=== PATIENT | female | born 1980 | race Caucasian/White ===

== ENCOUNTER 2016-08-21 14:08 | Emergency (ER) | payer OTHER ==
[~2016-08-21] VITALS: Ht 152.4 cm; Wt 84.0 kg
[2016-08-21 14:15] VITALS: Ht 152.4 cm; Wt 84.0 kg
[2016-08-21] MEDS ORDERED: morphine 4 MG/ML VIAL IV STA ×2 (14:37→17:01)
[2016-08-21] MEDS ORDERED: ONDANSETRON 4 MG INJ IV STA ×2 (14:37→17:01)
[2016-08-21] MEDS ORDERED: SOD CHLORIDE 0.9% 1,000 ML IV STA (14:37)
[2016-08-21 15:22] LABS: ADD SCAN DIFF NO
[2016-08-21 15:24] LABS: BASOPHILS % 0.6 % (0.0-2.0); EOSINOPHILS # 0.2 10^3/ul (0.0-0.5); EOSINOPHILS % 2.6 % (0.0-7.0); HEMATOCRIT 42.1 % (37.0-47.0); HEMOGLOBIN 13.6 g/dl (12.0-16.0); LYMPHOCYTES # 2.1 10^3/ul (0.8-2.9); LYMPHOCYTES % 28.5 % (15.0-51.0); MEAN CORPUSCULAR HEMOGLOBIN 29.5 pg (29.0-33.0); MEAN CORPUSCULAR HGB CONC 32.3 g/dl (32.0-37.0); MEAN CORPUSCULAR VOLUME 91.3 fl (82.0-101.0); MONOCYTE # 0.4 10^3/ul (0.3-0.9); MONOCYTES % 6.1 % (0.0-11.0); NEUTROPHIL # 4.5 10^3/ul (1.6-7.5); NEUTROPHILS % 61.9 % (39.0-77.0); PLATELET COUNT 304 10^3/UL (140-415); RED BLOOD COUNT 4.61 10^6/ul (4.20-5.40); RED CELL DISTRIBUTION WIDTH 13.8 % (11.5-14.5); WHITE BLOOD COUNT 7.2 10^3/ul (4.8-10.8)
[2016-08-21 15:26] LABS: ADD UMIC YES; URINE BILIRUBIN (Dip) NEGATIVE (NEGATIVE); URINE BLOOD (Dip) NEGATIVE (NEGATIVE); URINE COLOR YELLOW (YELLOW); URINE GLUCOSE (Dip) NEGATIVE (NEGATIVE); URINE KETONES (Dip) NEGATIVE (NEGATIVE); URINE LEUKOCYTE ESTERASE (Dip) 1+ (NEGATIVE); URINE NITRITE (Dip) NEGATIVE (NEGATIVE); URINE TOTAL PROTEIN (Dip) TRACE (NEGATIVE); URINE UROBILINOGEN (Dip) 0.2 E.U./dL (0.1-1.0)
--- NOTE | 2016-08-21 15:28 | RADRPT ---
PROCEDURE: CT Abdomen and Pelvis without contrast. CLINICAL INDICATION: Right lower quadrant pain TECHNIQUE: CT scan of the abdomen and pelvis without contrast was performed on a multi-slice CT sc kobe without intravenous contrast. Coronal and sagittal reformatted images were obtained from the axial source images. Images were reviewed on a high-resolution PACS workstation. One or more of the following does reduction techniques were used: Automated exposure control; adjustment of the mA an d/or kV according to patient size; use of the aorta of reconstruction technique. The total exam CTD I equals 14.66 mGy and the total exam DLP equals 754.68 mGy-cm. COMPARISON: None available. FINDINGS: There are minimal dependent changes in the posterior lower lobes.. Heart size is normal, and there is no evidence of pericardial thickening or effusion. Breast prostheses are partially imaged. The liver, spleen, and pancreas are normal given limitations of a noncontrast CT examination. The g allbladder is surgically absent. The adrenal glands are normal. The kidneys without renal calculus or hydronephrosis. The aorta is of normal caliber. There is no retroperitoneal lymph node enlargment. There is no evidence of large or small bowel obstruction. There are a few colonic diverticula. The re is no CT evidence of diverticulitis. A normal appendix is identified. No free fluid or fluid c ollections are identified. No inflammatory changes are seen. The uterus is present. No enlarged pelvic sidewall lymph nodes are seen. The bladder is decompresse d and collapsed. No free fluid is identified. The inguinal regions are unremarkable. The bones are intact. IMPRESSION: 1. No CT evidence of acute intra-abdominal or pelvic process. A normal appendix is identified. 2. No CT evidence of urolithiasis. 3. Diverticulosis without evidence of diverticulitis. RPTAT: KK .Petey Bland MD, MD Date Time Electronically viewed and signed by .Petey Bland MD, MD on 08/21/2016 15:28 .B/
[2016-08-21 15:41] LABS: POTASSIUM 4.5 mmol/L (3.5-5.1)
[2016-08-21 15:42] LABS: CREATININE 0.57 mg/dl (0.44-1.00)
[2016-08-21 15:43] LABS: ALBUMIN/GLOBULIN RATIO 1.53; BILIRUBIN,INDIRECT 0.4 mg/dl (0-1.1); BILIRUBIN,TOTAL 0.4 mg/dl (0.2-1.3); CALCIUM 9.7 mg/dl (8.4-10.2); TOTAL PROTEIN 6.6 g/dl (6.1-8.1)
[2016-08-21 15:46] LABS: BACTERIA,URINE MANY; SQUAMOUS EPITHELIAL CELL,UR MANY; URINE RBCS 0-2 /HPF (0)
--- NOTE | 2016-08-21 17:01 | RADRPT ---
PROCEDURE: US Pelvis CLINICAL INDICATION: right pelvic pain TECHNIQUE: Multiple sonographic images of the pelvis were obtained utilizing a transabdominal and endovaginal technique. The images were reviewed on a PACS workstation. COMPARISON: None. LMP: 08/14/2016 FINDINGS: The uterus measures 7.2 x 4.6 x 5.7 cm. The endometrial echo complex measures 9 mm in thickness. There is a 1.4 cm posterior subserosal fibroid at the level of the mid body. The right ovary measures 3.0 x 2.0 x 2.3 cm. The left ovary measures 3.0 x 1.4 x 2.0 cm. There is no rmal vascular flow in both ovaries. There is a 1.9 cm complex cystic lesion with thick farnsworth and heterogeneous internal echoes in the ri ght ovary which is likely a hemorrhagic or corpus luteal cyst. Minimal peripheral vascular flow is noted. No significant pelvic free fluid is identified. IMPRESSION: 1.4 cm subserosal fibroid. 1.9 cm complex cystic lesion in the right ovary is likely a hemorrhagic or corpus luteal cyst. RPTAT: EE Physician Amy Date Time Electronically viewed and signed by Physician Amy on 08/21/2016 17:01 /
[2016-08-21] MEDS ORDERED: HYDR-906 PO (17:25)
[2016-08-21] MEDS ORDERED: IBUP-1542 PO (17:25)
--- NOTE | 2016-08-21 18:03 | ERD ---
ER Documentation Chief Complaint Date/Time DATE: 08/21/16 TIME: 18:01 Chief Complaint R SIDED ABD PAIN X 2 DAYS HPI 35-year-old female with a past medical history of status post cholecystectomy in 2012 presents to the ED complaining of right lower quadrant abdominal pain and right pelvic pain that started 2 days ago intermittently. States that she started to have 6 episodes of nonbilious nonbloody vomiting and 4 episodes of nonbloody nonmucoid diarrhea. States that this was a sudden onset is gradually started to get worse. Dates that her last menses was August 14, 2016. Denies any vaginal bleeding, vaginal discharge, chest pain, shortness of breath , rashes, dysuria, urgency, frequency, hematuria. ROS All systems reviewed and are negative except as per history of present illness. Medications Home Meds Active Scripts Ibuprofen* (Motrin*) 600 Mg Tab, 600 MG PO Q6, #30 TAB Prov:GLENYS ANDERSON PA-C 08/21/16 Hydrocodone/Acetaminophen ([place] 5-325 Tablet) 1 Each Tablet, 1 TAB PO QHS Y for PAIN, #7 TAB Prov:GLENYS ANDERSON PA-C 08/21/16 Allergies Allergies: Coded Allergies: No Known Allergy (Unverified , 08/21/16) PMhx/Soc History of Surgery: Yes (gallbladder) Hx Alcohol Use: No Hx Substance Use: No Hx Tobacco Use: No Smoking Status: Never smoker Physical Exam Vitals Vital Signs Date Time Temp Pulse Resp B/P Pulse Ox O2 Delivery O2 Flow Rate FiO2 08/21/16 14:15 98.1 78 18 125/72 99 Physical Exam Const: Ths-dev-siecxjghr, well-nourished. In no acute distress. Head: Atraumatic, normocephalic Eyes: Normal Conjunctiva without injection. No purulent discharge. ENT: Normal external ear, nose. Moist oropharynx without tonsillar exudates. Non -erythematous pharynx. Uvula midline. No drooling. No trismus. Neck: No cervical midline tenderness. Full range of motion. No meningismus. No cervical lymphadenopathy. No JVD. Resp: Clear to auscultation bilaterally. No wheezing, rhonchi, rales, or crackles. No accessory muscle use. No retractions. Cardio: Regular rate and rhythm. No murmurs, rubs or gallops. Abd: Soft, right lower quadrant tenderness, non distended. Normal bowel sounds. No palpable masses. No rebound tenderness. No guarding. Negative McBurney' s point. Negative psoas sign. Negative obturator sign. Skin: No petechiae or rashes Back: No midline tenderness. No CVA tenderness. Ext: No cyanosis, or edema. Neur: Awake and alert. Normal gait. Normal coordination. Psych: Normal Mood and Affect Result Diagram: 08/21/16 1457 08/21/16 1457 Results 24 hrs Laboratory Tests Test 08/21/16 14:57 08/21/16 15:00 Alanine Aminotransferase (ALT/SGPT) 22IU/L Albumin 4.0g/dl Albumin/Globulin Ratio 1.53 Alkaline Phosphatase 58IU/L Anion Gap 17 Aspartate Amino Transf (AST/SGOT) 21IU/L Basophils # 0.010^3/ul Basophils % 0.6% Blood Urea Nitrogen 13mg/dl Calcium Level 9.7mg/dl Carbon Dioxide Level 24mmol/L Chloride Level 105mmol/L Creatinine 0.57mg/dl Direct Bilirubin 0.00mg/dl Eosinophils # 0.210^3/ul Eosinophils % 2.6% Globulin 2.60g/dl Glucose Level 89mg/dl Hematocrit 42.1% Hemoglobin 13.6g/dl Indirect Bilirubin 0.4mg/dl Lipase 109U/L Lymphocytes # 2.110^3/ul Lymphocytes % 28.5% Mean Corpuscular Hemoglobin 29.5pg Mean Corpuscular Hemoglobin Concent 32.3g/dl Mean Corpuscular Volume 91.3fl Mean Platelet Volume 10.0fl Monocytes # 0.410^3/ul Monocytes % 6.1% Neutrophils # 4.510^3/ul Neutrophils % 61.9% Nucleated Red Blood Cells # 0.010^3/ul Nucleated Red Blood Cells % 0.0/100WBC Platelet Count 89816^3/UL Potassium Level 4.5mmol/L Red Blood Count 4.6110^6/ul Red Cell Distribution Width 13.8% Sodium Level 141mmol/L Total Bilirubin 0.4mg/dl Total Protein 6.6g/dl White Blood Count 7.210^3/ul Urine Bacteria MANY Urine Bilirubin NEGATIVE Urine Clarity SLIGHTLY CLOUDY Urine Color YELLOW Urine Glucose NEGATIVE% Urine Hemoglobin NEGATIVE Urine Ketones NEGATIVE Urine Leukocyte Esterase 1+ Urine Microscopic RBC 0-2/HPF Urine Microscopic WBC 2-5/HPF Urine Nitrite NEGATIVE Urine Specific [place] 1.020 Urine Squamous Epithelial Cells MANY Urine Total Protein TRACE Urine Urobilinogen 0.2 E.U./dL Urine pH 7.5 Current Medications Medications (Trade) Dose Ordered Sig/Tiffany Route PRN Reason Start Time Stop Time Status Last Admin Dose Admin Sodium Chloride (NS) 1,000 ml @ 1,000 mls/hr Q1H STAT IV 08/21/16 14:37 08/21/16 15:36 DC 08/21/16 15:04 Morphine Sulfate (morphine) 4 mg ONCE STAT IV 08/21/16 14:37 08/21/16 14:42 DC 08/21/16 15:05 Ondansetron HCl (Zofran Inj) 4 mg ONCE STAT IV 08/21/16 14:37 08/21/16 14:42 DC 08/21/16 15:04 Ondansetron HCl (Zofran Inj) 4 mg ONCE STAT IV 08/21/16 17:01 08/21/16 17:02 DC 08/21/16 17:06 Morphine Sulfate (morphine) 4 mg ONCE STAT IV 08/21/16 17:01 08/21/16 17:02 DC 08/21/16 17:06 Procedures/MDM This is a 35-year-old female with a past medical history of status post cholecystectomy presents to the ED complaining of right lower quadrant abdominal pain. Patient is afebrile and nontoxic-appearing. Patient has normal vital signs. Patient was further worked up with CBC, CMP, lipase, UA, urine , CT of the abdomen and pelvis without contrast, pelvic ultrasound. Patient's pain and symptoms have improved after treatment with a total of 8 mg IV morphine, 8 mg IV Zofran. CBC: No leukocytosis. No e/o of systemic infection. No e/o anemia. CMP: No e/o severe acidosis, alkalosis, renal failure, diabetic ketoacidosis, liver disease Lipase within normal limits. Urine: No leukocyte esterase, no nitrites, no hematuria. Urine : negative PROCEDURE: US Pelvis CLINICAL INDICATION: right pelvic pain TECHNIQUE: Multiple sonographic images of the pelvis were obtained utilizing a transabdominal and endovaginal technique. The images were reviewed on a PACS workstation. COMPARISON: None. LMP: 08/14/2016 FINDINGS: The uterus measures 7.2 x 4.6 x 5.7 cm. The endometrial echo complex measures 9 mm in thickness. There is a 1.4 cm posterior subserosal fibroid at the level of the mid body. The right ovary measures 3.0 x 2.0 x 2.3 cm. The left ovary measures 3.0 x 1.4 x 2.0 cm. There is normal vascular flow in both ovaries. There is a 1.9 cm complex cystic lesion with thick farnsworth and heterogeneous internal echoes in the right ovary which is likely a hemorrhagic or corpus luteal cyst. Minimal peripheral vascular flow is noted. No significant pelvic free fluid is identified. IMPRESSION: 1.4 cm subserosal fibroid. 1.9 cm complex cystic lesion in the right ovary is likely a hemorrhagic or corpus luteal cyst. PROCEDURE: CT Abdomen and Pelvis without contrast. CLINICAL INDICATION: Right lower quadrant pain TECHNIQUE: CT scan of the abdomen and pelvis without contrast was performed on a multi-slice CT scanner without intravenous contrast. Coronal and sagittal reformatted images were obtained from the axial source images. Images were reviewed on a high-resolution PACS workstation. One or more of the following does reduction techniques were used: Automated exposure control; adjustment of the mA and/or kV according to patient size; use of the aorta of reconstruction technique. The total exam CTDI equals 14.66 mGy and the total exam DLP equals 754.68 mGy-cm. COMPARISON: None available. FINDINGS: There are minimal dependent changes in the posterior lower lobes.. Heart size is normal, and there is no evidence of pericardial thickening or effusion. Breast prostheses are partially imaged. The liver, spleen, and pancreas are normal given limitations of a noncontrast CT examination. The gallbladder is surgically absent. The adrenal glands are normal. The kidneys without renal calculus or hydronephrosis. The aorta is of normal caliber. There is no retroperitoneal lymph node enlargment. There is no evidence of large or small bowel obstruction. There are a few colonic diverticula. There is no CT evidence of diverticulitis. A normal appendix is identified. No free fluid or fluid collections are identified. No inflammatory changes are seen. The uterus is present. No enlarged pelvic sidewall lymph nodes are seen. The bladder is decompressed and collapsed. No free fluid is identified. The inguinal regions are unremarkable. The bones are intact. IMPRESSION: 1. No CT evidence of acute intra-abdominal or pelvic process. A normal appendix is identified. 2. No CT evidence of urolithiasis. 3. Diverticulosis without evidence of diverticulitis. Patient has diverticulosis without signs of diverticulitis, perforation, abscess noted. Patient also has a fibroid and right ovarian cyst. There is low suspicion for acute abdomen, appendicitis, ovarian torsion, ectopic , or other emergent conditions. A differential diagnosis considered includes but is not limited to gastritis, GERD, peptic ulcer disease, cholecystitis, choledocholithiasis, cholangitis, pancreatitis, appendicitis, bowel obstruction, ileus, volvulus, nephrolithiasis, pyelonephritis, hepatitis, perforated viscus, diverticulitis, abdominal hernia, acute abdomen, mesenteric ischemia or other emergent conditions. Discharge medications: [place], ibuprofen Follow up with primary care physician in 1-2 days for referral to [facility]. Instructed patient to return to the ED sooner for any worsening symptoms. Patient's questions were answered. Patient understood and agreed with discharge plan. Patient discharged stable. Departure Diagnosis: Primary Impression: Diverticulosis Diverticulosis site: unspecified location Diverticulosis bleeding: diverticulosis without bleeding Qualified Code: K57.90 - Diverticulosis of intestine without bleeding, unspecified intestinal tract location Additional Impressions: Fibroid Uterine leiomyoma location: unspecified location Qualified Code: D25.9 - Uterine leiomyoma, unspecified location Ovarian cyst Laterality: right Qualified Code: N83.201 - Cyst of right ovary Condition: Stable Patient Instructions: Understanding Diverticulosis and Diverticulitis, What Are Fibroids?, What Are Ovarian Cysts? Referrals: [facility] YOU HAVE RECEIVED A MEDICAL SCREENING EXAM AND THE RESULTS INDICATE THAT YOU DO NOT HAVE A CONDITION THAT REQUIRES URGENT TREATMENT IN THE EMERGENCY DEPARTMENT. FURTHER EVALUATION AND TREATMENT OF YOUR CONDITION CAN WAIT UNTIL YOU ARE SEEN IN YOUR DOCTORS OFFICE WITHIN THE NEXT 1-2 DAYS. IT IS YOUR RESPONSIBILITY TO MAKE AN APPOINTMENT FOR FOLOW-UP CARE. IF YOU HAVE A PRIMARY DOCTOR --you should call your primary doctor and schedule an appointment IF YOU DO NOT HAVE A PRIMARY DOCTOR YOU CAN CALL OUR PHYSICIAN REFERRAL HOTLINE AT IF YOU CAN NOT AFFORD TO SEE A PHYSICIAN YOU CAN CHOSE FROM THE FOLLOWING [facility] [address] [facility]. [facility] [address] [facility]. [facility] [address] [facility] [address] [facility] [address] [facility]. [facility]. [address] [facility]. [facility] YOU HAVE RECEIVED A MEDICAL SCREENING EXAM AND THE RESULTS INDICATE THAT YOU DO NOT HAVE A CONDITION THAT REQUIRES URGENT TREATMENT IN THE EMERGENCY DEPARTMENT. FURTHER EVALUATION AND TREATMENT OF YOUR CONDITION CAN WAIT UNTIL YOU ARE SEEN IN YOUR DOCTORS OFFICE WITHIN THE NEXT 1-2 DAYS. IT IS YOUR RESPONSIBILITY TO MAKE AN APPOINTMENT FOR FOLOW-UP CARE. IF YOU HAVE A PRIMARY DOCTOR --you should call your primary doctor and schedule and appointment IF YOU DO NOT HAVE A PRIMARY DOCTOR YOU CAN CALL OUR PHYSICIAN REFERRAL HOTLINE AT . IF YOU CAN NOT AFFORD TO SEE A PHYSICIAN YOU CAN CHOSE FROM THE FOLLOWING [facility] INSTITUTIONS: [facility] [address] [place] [address] [facility] [address] [place] [address] [facility] [address] [place] [address] [employer] [place] [address] [facility] [address] [place], [place] [phone] OFFICE FAX MANUEL AGUILA [address] [place], [place] [phone] [place] [place] [address] [place], [place] [phone] STEVEN FIGUEROA [address] [facility], [address] [address] [address] [address] [place] [phone] [facility] [address] [place], [place] [address] [address] [facility] [id number] - [place] [address], [facility] [id number], [place] [address] [facility]. [address], [facility] [address] [address], [facility] [address] [place] [address] [facility] Hours: 8:00 am - 5:00 pm Additional Instructions: FOLLOW UP WITH YOUR PRIMARY CARE PHYSICIAN TOMORROW for a referral for an OB/ [employer] and [facility]. Return to this facility if you are not improving as expected. GLENYS ANDERSON PA-C Aug 21, 2016 18:03
[2016-08-21 18:34] VITALS: BP 120/70; PULSE 68; RESP 16; TEMP 98.1
== END 2016-08-21 17:25 | disposition home or self-care (01) ==
LOC: FTE 14:08
DX: K57.90 Diverticulosis of intestine, part unspecified, without perforation or abscess without bleeding (principal); D25.9 Leiomyoma of uterus, unspecified; N83.201 Unspecified ovarian cyst, right side; R10.2 Pelvic and perineal pain; R11.10 Vomiting, unspecified
CPT/HCPCS: 36415; 74176; 76856; 80053; 81001; 83690; 85025; 87086; 96374; 96375; 96376; J2270; J2405; J7030; Z7502; 81003

== ENCOUNTER 2016-08-29 19:44 | Emergency (ER) | payer OTHER ==
[~2016-08-29] VITALS: Wt 84.5 kg
[~2016-08-29 19:44] MED LIST: HYDR-906 PO; IBUP-1542 PO
[2016-08-29] MEDS ORDERED: SOD CHLORIDE 0.9% 1,000 ML IV STA (22:06)
[2016-08-29] MEDS ORDERED: ONDANSETRON 4 MG INJ IV STA (22:06)
[2016-08-29] MEDS ORDERED: morphine 4 MG/ML VIAL IV STA (22:06)
[2016-08-29 22:24] LABS: URINE BLOOD (Dip) POC Negative (NEGATIVE)
[2016-08-29 22:39] LABS: ADD SCAN DIFF NO
[2016-08-29 22:43] LABS: BASOPHILS % 0.5 % (0.0-2.0); EOSINOPHILS # 0.2 10^3/ul (0.0-0.5); EOSINOPHILS % 3.9 % (0.0-7.0); HEMATOCRIT 44.4 % (37.0-47.0); HEMOGLOBIN 14.9 g/dl (12.0-16.0); LYMPHOCYTES # 1.5 10^3/ul (0.8-2.9); LYMPHOCYTES % 24.4 % (15.0-51.0); MEAN CORPUSCULAR HEMOGLOBIN 30.4 pg (29.0-33.0); MEAN CORPUSCULAR HGB CONC 33.6 g/dl (32.0-37.0); MEAN CORPUSCULAR VOLUME 90.6 fl (82.0-101.0); MONOCYTE # 0.8 10^3/ul (0.3-0.9); MONOCYTES % 13.6 % (0.0-11.0); NEUTROPHIL # 3.6 10^3/ul (1.6-7.5); NEUTROPHILS % 57.3 % (39.0-77.0); PLATELET COUNT 313 10^3/UL (140-415); RED CELL DISTRIBUTION WIDTH 13.6 % (11.5-14.5); WHITE BLOOD COUNT 6.2 10^3/ul (4.8-10.8)
[2016-08-29 23:00] LABS: ALBUMIN 4.7 g/dl (3.3-4.9); POTASSIUM 3.6 mmol/L (3.5-5.1)
[2016-08-29 23:02] LABS: BILIRUBIN,INDIRECT 0.1 mg/dl (0-1.1); BILIRUBIN,TOTAL 0.1 mg/dl (0.2-1.3); CREATININE 0.59 mg/dl (0.44-1.00)
[2016-08-29 23:03] LABS: ALBUMIN/GLOBULIN RATIO 1.3; CALCIUM 9.4 mg/dl (8.4-10.2); TOTAL PROTEIN 8.3 g/dl (6.1-8.1)
[2016-08-29] MEDS ORDERED: HYDROmorphONE 1 MG/ML SYG IV STA (23:11)
--- NOTE | 2016-08-29 23:20 | ERD ---
ER Documentation Chief Complaint Date/Time DATE: 08/29/16 TIME: 23:16 Chief Complaint RLQ pain rad into back w n/v/d, cough HPI Patient is a 35-year-old female with past medical history diverticulitis, uterine fibroids, right ovarian cyst, who presents to the emergency department with right lower quadrant abdominal pain which is radiating into her back. She states her pain has been present for the last 2 weeks. Patient was seen here approximately 1 week ago and diagnosed with diverticulitis, fibroid and right ovarian cyst. Patient states that her pain is different from that visit. Patient states the pain is "more intense and more constant." Patient also reports nausea and vomiting. Patient states she is vomited 4 times today, nonbloody nonbilious. Patient states she has had loose stools, nonbloody. Patient denies any fever, chills. Patient states she took ibuprofen with no alleviation of symptoms. Patient is not taking [place] "makes her feel nauseous" patient states her last mental period was 2 weeks ago. Patient denies any pain with urination, frequency, urgency. ROS All systems reviewed and are negative except as per history of present illness. Medications Home Meds Active Scripts Tramadol HCl (Tramadol HCl) 50 Mg Tablet, 50 MG PO Q4 Y for PAIN, #10 TAB Prov:RAE CRAIG PA-C 08/30/16 Ibuprofen* (Motrin*) 600 Mg Tab, 600 MG PO Q6, #30 TAB Prov:GLENYS ANDERSON PA-C 08/21/16 Hydrocodone/Acetaminophen ([place] 5-325 Tablet) 1 Each Tablet, 1 TAB PO QHS Y for PAIN, #7 TAB Prov:GLENYS ANDERSON PA-C 08/21/16 Allergies Allergies: Coded Allergies: No Known Allergy (Unverified , 08/21/16) PMhx/Soc History of Surgery: Yes (gallbladder) Hx Alcohol Use: No Hx Substance Use: No Hx Tobacco Use: No Physical Exam Vitals Vital Signs Date Time Temp Pulse Resp B/P Pulse Ox O2 Delivery O2 Flow Rate FiO2 08/30/16 00:27 98.0 74 18 141/60 100 Room Air 08/29/16 20:22 97.9 74 20 140/60 100 Physical Exam GENERAL: Well-developed, well-nourished female. Appears in no acute distress. HEAD: Normocephalic, atraumatic. EYES: Pupils are equally reactive bilaterally. EOMs grossly intact. No conjunctival erythema. ENT: Moist mucous membranes. No uvula deviation. No kissing tonsils. NECK: Supple. No meningismus. Normal range of motion of the neck. LUNG: Clear to auscultation bilaterally. No rhonchi, wheezing, rales or coarse breath sounds. HEART: Regular rate and rhythm. No murmurs, rubs or gallops. ABDOMEN: No scars, ecchymosis or rashes noted. Soft, and nondistended. Tender to palpation in the right lower quadrant and suprapubic region. Positive bowel sounds in all four quadrants. No rebound tenderness, no guarding. (-) McBurney' s point tenderness. No CVA tenderness. BACK: No midline tenderness. EXTREMITIES: Equal pulses bilaterally. No peripheral clubbing, cyanosis or edema. No unilateral leg swelling. NEUROLOGIC: Alert and oriented. Moving all four extremities without any difficulty. Normal speech. Steady gait. SKIN: Normal color. Warm and dry. No rashes or lesions. Result Diagram: 08/29/16201508/29/162015 Results 24 hrs Laboratory Tests Test 08/29/16 20:16 08/29/16 22:22 Alanine Aminotransferase (ALT/SGPT) 28IU/L Albumin 4.7g/dl Albumin/Globulin Ratio 1.30 Alkaline Phosphatase 95IU/L Anion Gap 18 Aspartate Amino Transf (AST/SGOT) 26IU/L Basophils # 0.010^3/ul Basophils % 0.5% Blood Urea Nitrogen 17mg/dl Calcium Level 9.4mg/dl Carbon Dioxide Level 25mmol/L Chloride Level 107mmol/L Creatinine 0.59mg/dl Direct Bilirubin 0.00mg/dl Eosinophils # 0.210^3/ul Eosinophils % 3.9% Globulin 3.60g/dl Glucose Level 91mg/dl Hematocrit 44.4% Hemoglobin 14.9g/dl Indirect Bilirubin 0.1mg/dl Lipase 134U/L Lymphocytes # 1.510^3/ul Lymphocytes % 24.4% Mean Corpuscular Hemoglobin 30.4pg Mean Corpuscular Hemoglobin Concent 33.6g/dl Mean Corpuscular Volume 90.6fl Mean Platelet Volume 10.0fl Monocytes # 0.810^3/ul Monocytes % 13.6% Neutrophils # 3.610^3/ul Neutrophils % 57.3% Nucleated Red Blood Cells # 0.010^3/ul Nucleated Red Blood Cells % 0.0/100WBC Platelet Count 02991^3/UL Potassium Level 3.6mmol/L Red Blood Count 4.9010^6/ul Red Cell Distribution Width 13.6% Sodium Level 146mmol/L Total Bilirubin 0.1mg/dl Total Protein 8.3g/dl White Blood Count 6.210^3/ul Bedside Urine Blood Negative Bedside Urine Glucose (UA) Negative Bedside Urine Ketones (LAB) 1+ Bedside Urine Leukocyte Esterase (L Negative Bedside Urine Nitrite (LAB) Negative Bedside Urine Protein (LAB) 1+ Bedside Urine pH (LAB) 6.0 Current Medications Medications (Trade) Dose Ordered Sig/Tiffany Route PRN Reason Start Time Stop Time Status Last Admin Dose Admin Sodium Chloride (NS) 1,000 ml @ 1,000 mls/hr Q1H STAT IV 08/29/16 22:06 08/29/16 23:05 DC 08/29/16 22:18 Morphine Sulfate (morphine) 4 mg ONCE STAT IV 08/29/16 22:06 08/29/16 22:08 DC 08/29/16 22:18 Ondansetron HCl (Zofran Inj) 4 mg ONCE STAT IV 08/29/16 22:06 08/29/16 22:08 DC 08/29/16 22:18 Hydromorphone HCl (Dilaudid) 0.5 mg ONCE STAT IV 08/29/16 23:11 08/29/16 23:12 DC 08/29/16 23:22 Procedures/MDM ED COURSE: The patient was stable throughout ED course. I kept the patient and/or family informed of laboratory and diagnostic imaging results throughout the ED course. DIAGNOSTIC IMAGING: Read by radiologist. Patient: DEVIN ROBERTS : 1980 Age: 35 Sex: F MR #: [id number] DOS: 08/29/162205 Ordering MD: RAE CRAIG PA-C Location: [facility] Room/Bed: PROCEDURE: CT Abdomen and Pelvis without contrast CLINICAL INDICATION: Right upper quadrant abdominal pain TECHNIQUE: Transaxial images were obtained through the abdomen and pelvis on a multi-slice scanner without the intravenous contrast administration. No oral contrast had previously been given. Sagittal and coronal re-formations were subsequently reconstructed. One or more of the following dose reduction techniques were used: - Automated exposure control. - Adjustment of the mA and/or kV according to patient size. - Use of iterative reconstruction technique. Radiation dose: CTDIvol = 17.88 mGy; DLP = 898.61 mGy-cm. COMPARISON: 08/21/2016 FINDINGS: Lung bases: The visualized lung bases appear unremarkable. Breast implants are again present. Liver: The liver remains borderline enlarged with no focal lesion. Gallbladder: Surgical edie are again seen in the gallbladder fossa. Bile ducts: The intra and extrahepatic bile ducts are normal in caliber. Pancreas: Appears normal with no mass or inflammation evident. Spleen: Normal in size with no focal lesion. Adrenals: Normal with no mass identified. Kidneys, ureters and bladder: There is increased density within the renal pyramids suspicious for mild nephrocalcinosis, unchanged. No mass, nephrolith or hydronephrosis is identified. The ureters are normal in caliber and no ureteroliths are identified. The bladder appears unremarkable. Reproductive organs: The uterus is midline and no adnexal mass is evident. Stomach and bowel: The stomach appears unremarkable as is the small bowel. There are a few scattered colonic diverticuli without evidence of bowel obstruction or inflammation. Appendix: A normal-appearing retrocecal vermiform appendix is evident. Peritoneum: No free intraperitoneal fluid or air is identified. There is a small fat containing umbilical hernia. Aorta: Normal in caliber with no aneurysmal dilatation. IVC: Unremarkable. Lymph nodes: There is a 9 mm right and 8 mm left inguinal node. Osseous structures: A 1.3 cm focal area of increased sclerosis is seen within the left supra-acetabular ilium. The osseous elements otherwise appear intact. IMPRESSION: 1. When compared the previous CT of 08/21/2016, there are again a few colonic diverticuli but there is no evidence of bowel obstruction or inflammation. A normal vermiform appendix is again evident. 2. Again there is no evidence of urinary outflow obstruction or ureterolithiasis. The renal pyramids remain slightly dense suspicious for mild nephrocalcinosis. 3. Status post cholecystectomy without evidence of bile duct dilatation or pancreatic pathology. 4. A 1.3 cm focal area of increased sclerosis is again seen in the left supra- acetabular ilium which likely represents a bone island. Physician Padmini Date Time Electronically viewed and signed by Physician Padmini on 08/29/2016 23:21 RH/ CC: RAE CRAIG PA-C Patient: DEVIN ROBERTS : 1980 Age: 35 Sex: F MR #: [id number] DOS: 08/29/166 Ordering MD: RAE CRAIG PA-C Location: [facility] Room/Bed: PROCEDURE: US Pelvis. CLINICAL INDICATION: Abdominal pain. TECHNIQUE: Multiple sonographic images of the pelvis were obtained utilizing a transabdominal and endovaginal technique. The images were reviewed on a PACS workstation. COMPARISON: None. FINDINGS: The uterus is visualized and measures 89 x 45 x 41 mm. The uterus is anteverted. The endometrial echo complex is normal and measures 9 mm. There is no evidence for free fluid. The right ovary has a normal echotexture and measures 24 x 24 x 26 mm . Right ovarian cyst measures 13 mm. The left ovary has a normal echotexture and measures 20 x 20 x 14 mm. No adnexal masses are noted. IMPRESSION: 1. Nonspecific a 13 mm right ovarian cyst. 2. Otherwise, no identified acute process in the pelvis. RPTAT: [facility] Physician Myles Date Time Electronically viewed and signed by Physician Myles on 08/29/2016 23:30 RS/ CC: RAE CRAIG PA-C PROCEDURES: None. MEDICATIONS GIVEN: IV fluids, Zofran, morphine, Dilaudid Patient tolerated medication well with no adverse reactions. Patient reported improvement in pain. MEDICAL DECISION MAKING: This is a 35-year-old female who presents with right lower quadrant pain. Patient was seen here approximately 1 week ago and diagnosed with diverticulitis , uterine fibroid, and right ovarian cyst. Patient states however her pain over the last few days has become "more intense and more constant." Patient also reports nausea, vomiting and loose nonbloody stools. Vital signs were reviewed. Patient was afebrile. Patient was not hypoxic. CBC showed no evidence of systemic infection or severe anemia. CMP showed no evidence of severe electrolyte abnormalities, severe acidosis, alkalosis, renal failure, or liver disease. Lipase showed no evidence of acute pancreatitis. UA showed no evidence of acute infection or hematuria. Low suspicion for UTI, pyelonephritis or nephrolithiasis. Urine test was negative. CT abdomen and pelvis showed when compared the previous CT of 08/21/2016, there are again a few colonic diverticuli but there is no evidence of bowel obstruction or inflammation. A normal vermiform appendix is again evident. Again there is no evidence of urinary outflow obstruction or ureterolithiasis. The renal pyramids remain slightly dense suspicious for mild nephrocalcinosis. Status post cholecystectomy without evidence of bile duct dilatation or pancreatic pathology. Pelvic US showed Nonspecific a 13 mm right ovarian cyst. Otherwise, no identified acute process in the pelvis. At this time, patient's presentation is most consistent with diverticulosis and ovarian cyst. I have a much lower clinical concern for acute coronary syndrome, mesenteric ischemia, lower lobe pneumonia, DKA, bowel perforation, bowel obstruction, pancreatitis, splenic rupture, diverticulitis, UTI, pyelonephritis , nephrolithiasis, appendicitis, , ectopic , ovarian torsion or tubo-ovarian abscess. PRESCRIPTIONS: Tramadol DISCHARGE: At this time, patient is stable for discharge and outpatient management. I have instructed the patient to follow-up with his/her primary care physician in 1-2 days. I have instructed the patient to promptly return to the ER at any time for any new or worsening symptoms including increased pain, nausea, vomiting, diarrhea, fever, weakness or LOC. The patient and/or family expressed understanding of and agreement with this plan. All questions were answered. Home care instructions were provided. Departure Diagnosis: Primary Impression: Diverticulosis Diverticulosis site: unspecified location Diverticulosis bleeding: diverticulosis without bleeding Qualified Code: K57.90 - Diverticulosis of intestine without bleeding, unspecified intestinal tract location Additional Impression: Ovarian cyst Laterality: right Qualified Code: N83.201 - Cyst of right ovary Condition: Stable Patient Instructions: Diverticulosis, What Are Ovarian Cysts? Referrals: SHARON GONSALEZ MD, GNANA MD GORDON, RICHARD K MD [facility] Additional Instructions: Call your primary care doctor TOMORROW for an appointment during the next 1-2 days.See the doctor sooner or return here if your condition worsens before your appointment time. RAE CRAIG PA-C Aug 29, 2016 23:20
--- NOTE | 2016-08-29 23:31 | RADRPT ---
PROCEDURE: US Pelvis. CLINICAL INDICATION: Abdominal pain. TECHNIQUE: Multiple sonographic images of the pelvis were obtained utilizing a transabdominal and endovaginal technique. The images were reviewed on a PACS workstation. COMPARISON: None. FINDINGS: The uterus is visualized and measures 89 x 45 x 41 mm. The uterus is anteverted. The endometrial ech o complex is normal and measures 9 mm. There is no evidence for free fluid. The right ovary has a no rmal echotexture and measures 24 x 24 x 26 mm . Right ovarian cyst measures 13 mm. The left ovary phan s a normal echotexture and measures 20 x 20 x 14 mm. No adnexal masses are noted. IMPRESSION: 1. Nonspecific a 13 mm right ovarian cyst. 2. Otherwise, no identified acute process in the pelvis. RPTAT: [facility]U Physician Myles Date Time Electronically viewed and signed by Physician Myles on 08/29/2016 23:30 RS/
[2016-08-30] MEDS ORDERED: TRAM50TA2 PO ×2 (00:08→00:10)
[2016-08-30 00:27] VITALS: BP 141/60; PULSE 74; RESP 18; TEMP 98
== END 2016-08-30 00:28 | disposition home or self-care (01) ==
LOC: FTE 19:44
DX: K57.90 Diverticulosis of intestine, part unspecified, without perforation or abscess without bleeding (principal); N83.201 Unspecified ovarian cyst, right side; R11.2 Nausea with vomiting, unspecified
CPT/HCPCS: 36415; 74176; 76830; 76856; 80053; 81003; 83690; 85025; 96374; 96375; J1170; J2270; J2405; J7030; Z7502

== ENCOUNTER 2016-09-27 10:37 | Emergency (ER) | payer OTHER ==
[~2016-09-27] VITALS: Ht 157.5 cm; Wt 78.9 kg
[~2016-09-27 10:37] MED LIST changes: +TRAM50TA2 PO
[2016-09-27 10:40] VITALS: Ht 157.5 cm; Wt 78.9 kg
[2016-09-27] MEDS ORDERED: ONDANSETRON 4 MG INJ IV STA ×2 (11:28→12:33)
[2016-09-27] MEDS ORDERED: SOD CHLORIDE 0.9% 500 ML IV STA (11:28)
[2016-09-27] MEDS ORDERED: KETOROLAC 15 MG INJ IV STA (11:28)
[2016-09-27] MEDS ORDERED: DICYCLOMINE 20 MG INJ IM ONE (11:30)
--- NOTE | 2016-09-27 11:40 | ERA ---
ER Documentation Chief Complaint Date/Time DATE: 09/27/16 TIME: 11:37 Chief Complaint ap x 2 days HPI 36-year-old female who presents to the emergency room with abdominal pain. The patient has a past medical history of cholecystectomy approximately 3-4 years ago. She also states elective miscarriage approximately 2 weeks ago with completion of the miscarriage 1 week ago after taking medication. She did not have a D&C. She was approximately 6 weeks and had a confirmed IUP. She describes over the past 48 hours subjective fevers, nonbloody nonbilious emesis , loose watery stools and cramping epigastric abdominal discomfort that is moderate. She denies any vaginal bleeding for 1 week. She denies any lower abdominal pain. No recent travel or sick contacts. ROS All systems reviewed and are negative except as per history of present illness. Medications Home Meds Active Scripts Tramadol HCl (Tramadol HCl) 50 Mg Tablet, 50 MG PO Q4 Y for PAIN, #10 TAB Prov:RAE CRAIG PA-C 08/30/16 Ibuprofen* (Motrin*) 600 Mg Tab, 600 MG PO Q6, #30 TAB Prov:GLENYS ANDERSON PA-C 08/21/16 Hydrocodone/Acetaminophen ([place] 5-325 Tablet) 1 Each Tablet, 1 TAB PO QHS Y for PAIN, #7 TAB Prov:GLENYS ANDERSON PA-C 08/21/16 Allergies Allergies: Coded Allergies: No Known Allergy (Unverified , 08/21/16) PMhx/Soc Medical and Surgical Hx: pt denies Medical Hx History of Surgery: Yes (gallbladder, d&c) Hx Alcohol Use: No Hx Substance Use: No Hx Tobacco Use: No Smoking Status: Never smoker FmHx Family History: No diabetes Physical Exam Vitals Vital Signs Date Time Temp Pulse Resp B/P Pulse Ox O2 Delivery O2 Flow Rate FiO2 09/27/16 14:41 98.1 74 20 129/63 100 Room Air 09/27/16 10:40 98.1 79 20 136/87 99 Physical Exam General: Well developed, well nourished, slightly uncomfortable Head: Normocephalic, atraumatic. Eyes: Pupils equally reactive, EOM intact ENT: Moist mucous membranes Neck: Supple, no lymphadenopathy Respiratory: Lungs clear bilaterally, no distress Cardiovascular: RRR, no murmurs, rubs, or gallops Abdominal: Soft, mild tenderness to the epigastrium, right-sided slightly greater than left, no Suresh sign, no tenderness to McBurney's point, no peritonitis : Deferred MSK: No edema, no unilateral swelling, 5/5 strength Neurologic: Alert and oriented, moving all extremities, normal speech, no focal weakness, no cerebellar signs Skin: No rash Psych: Normal mood Result Diagram: 09/27/16 1145 09/27/16 1145 Results 24 hrs Laboratory Tests Test 09/27/16 11:45 White Blood Count 8.510^3/ul Red Blood Count 4.5410^6/ul Hemoglobin 13.4g/dl Hematocrit 42.2% Mean Corpuscular Volume 93.0fl Mean Corpuscular Hemoglobin 29.5pg Mean Corpuscular Hemoglobin Concent 31.8g/dl Red Cell Distribution Width 14.4% Platelet Count 83474^3/UL Mean Platelet Volume 9.6fl Neutrophils % 77.0% Lymphocytes % 17.8% Monocytes % 4.1% Eosinophils % 0.4% Basophils % 0.2% Nucleated Red Blood Cells % 0.0/100WBC Neutrophils # 6.610^3/ul Lymphocytes # 1.510^3/ul Monocytes # 0.410^3/ul Eosinophils # 0.010^3/ul Basophils # 0.010^3/ul Nucleated Red Blood Cells # 0.010^3/ul Sodium Level 141mmol/L Potassium Level 3.5mmol/L Chloride Level 107mmol/L Carbon Dioxide Level 22mmol/L Anion Gap 16 Blood Urea Nitrogen 12mg/dl Creatinine 0.55mg/dl Glucose Level 102mg/dl Calcium Level 9.1mg/dl Total Bilirubin 0.5mg/dl Direct Bilirubin 0.00mg/dl Indirect Bilirubin 0.5mg/dl Aspartate Amino Transf (AST/SGOT) 21IU/L Alanine Aminotransferase (ALT/SGPT) 25IU/L Alkaline Phosphatase 72IU/L Total Protein 7.9g/dl Albumin 4.5g/dl Globulin 3.40g/dl Albumin/Globulin Ratio 1.32 Lipase 82U/L Beta HCG, Quantitative 1619.1mIU/ml Current Medications Medications (Trade) Dose Ordered Sig/Tiffany Route PRN Reason Start Time Stop Time Status Last Admin Dose Admin Sodium Chloride (NS) 500 ml @ 500 mls/hr Q1H STAT IV 09/27/16 11:28 09/27/16 12:27 DC 09/27/16 11:41 Ondansetron HCl (Zofran Inj) 4 mg ONCE STAT IV 09/27/16 11:28 09/27/16 11:30 DC 09/27/16 11:41 Ketorolac Tromethamine (Toradol) 15 mg ONCE STAT IV 09/27/16 11:28 09/27/16 11:30 DC 09/27/16 11:41 Dicyclomine HCl (Bentyl) 10 mg ONCE ONCE IM 09/27/16 11:30 09/27/16 11:31 DC 09/27/16 12:14 Hydromorphone HCl (Dilaudid) 0.5 mg ONCE STAT IV 09/27/16 12:33 09/27/16 12:34 DC 09/27/16 12:37 Ondansetron HCl (Zofran Inj) 4 mg ONCE STAT IV 09/27/16 12:33 09/27/16 12:34 DC 09/27/16 12:37 Hydromorphone HCl (Dilaudid) 0.5 mg ONCE STAT IV 09/27/16 14:37 09/27/16 14:39 DC 09/27/16 14:43 Procedures/MDM EKG, MONITORS, & DIAGNOSTIC IMAGING: Pelvic ultrasound: IMPRESSION: Marked thickening of the endometrium to 20 mm as well as trace endocervical fluid and a 4-5 mm possible intrauterine gestational sac without a yolk sac or pole, as above. Correlation with a beta HCG level is recommended. If the test is positive, then findings may be due to an early intrauterine or early demise, given the endocervical fluid. Moreover, if the test is positive, an ectopic is not excluded and short-term follow-up ultrasound and serial Beta HCG measurements are recommended for further evaluation. 1.4 cm complex cystic lesion in the right ovary may be a hemorrhagic or corpus luteal cyst. RPTAT: EE LAB INTERPRETATION: HCG is 1600 MEDICAL DECISION MAKING: The patient presents the emergency room with multiple complaints including subjective fevers, nausea vomiting diarrhea and abdominal pain. She is approximately 2 weeks status post elective miscarriage, no vaginal bleeding for approximately 1 week. Very broad differential. I believe this is most likely a viral gastroenteritis. However, the patient does have surgical history. She has a benign exam without signs or symptoms concerning for small bowel obstruction. I would like to avoid unnecessary CT imaging as the patient has had 2 CAT scans in August for abdominal pain. Additionally, the patient most recently had an elective miscarriage. This does complicate the process. While I do not believe that the patient's nausea vomiting and diarrhea are consistent with complications related to this miscarriage I cannot rule out retained products of conception versus ectopic . Ectopic seems extremely unlikely given that the patient reports confirmed IUP. She has no vaginal bleeding. She has no peritonitis. However, a serum hCG and pelvic ultrasound would be reasonable. Low clinical concern for acute appendicitis given no fever, no migratory pain, no tenderness to the right lower quadrant. ER COURSE: Patient given IV fluids, Toradol, Bentyl. The patient continues to have pain requiring multiple doses of Dilaudid. Her hCG is still 1600 and the patient's ultrasound shows concern for possible missed . For this reason I have consulted [facility] labor wrist on-call Dr. Larson. We have discussed the possibility of D&C. He would like to admit the patient for elective D&C today. The patient was informed, she is n.p.o. I kept the patient and/or family informed of laboratory and diagnostic imaging results throughout the emergency room course. DISPOSITION PLAN: Admission to labor and delivery for D&C CONSULTATION: Accepting care team and consultations: I discussed the current laboratory data, diagnostic imaging and emergency care provided. Admitting team: Dr. Larson Admitting team indication: Insurance directed Departure Diagnosis: Primary Impression: Nausea vomiting and diarrhea Additional Impressions: Generalized abdominal pain Missed Condition: CHIP Bowman MD Sep 27, 2016 11:40
[2016-09-27 11:49] LABS: ADD SCAN DIFF NO
[2016-09-27 11:51] LABS: BASOPHILS % 0.2 % (0.0-2.0); EOSINOPHILS % 0.4 % (0.0-7.0); HEMATOCRIT 42.2 % (37.0-47.0); HEMOGLOBIN 13.4 g/dl (12.0-16.0); LYMPHOCYTES # 1.5 10^3/ul (0.8-2.9); LYMPHOCYTES % 17.8 % (15.0-51.0); MEAN CORPUSCULAR HEMOGLOBIN 29.5 pg (29.0-33.0); MEAN CORPUSCULAR HGB CONC 31.8 g/dl (32.0-37.0); MEAN PLATELET VOLUME 9.6 fl (7.4-10.4); MONOCYTE # 0.4 10^3/ul (0.3-0.9); MONOCYTES % 4.1 % (0.0-11.0); NEUTROPHIL # 6.6 10^3/ul (1.6-7.5); PLATELET COUNT 293 10^3/UL (140-415); RED BLOOD COUNT 4.54 10^6/ul (4.20-5.40); RED CELL DISTRIBUTION WIDTH 14.4 % (11.5-14.5); WHITE BLOOD COUNT 8.5 10^3/ul (4.8-10.8)
[2016-09-27 12:04] LABS: ALBUMIN 4.5 g/dl (3.3-4.9)
[2016-09-27 12:05] LABS: POTASSIUM 3.5 mmol/L (3.5-5.1)
[2016-09-27 12:07] LABS: ALBUMIN/GLOBULIN RATIO 1.32; BILIRUBIN,INDIRECT 0.5 mg/dl (0-1.1); BILIRUBIN,TOTAL 0.5 mg/dl (0.2-1.3); CREATININE 0.55 mg/dl (0.44-1.00); TOTAL PROTEIN 7.9 g/dl (6.1-8.1)
[2016-09-27 12:08] LABS: CALCIUM 9.1 mg/dl (8.4-10.2)
[2016-09-27] MEDS ORDERED: HYDROmorphONE 1 MG/ML SYG IV STA ×2 (12:33→14:37)
--- NOTE | 2016-09-27 13:58 | RADRPT ---
PROCEDURE: US Pelvis CLINICAL INDICATION: Pain TECHNIQUE: Multiple sonographic images of the pelvis were obtained utilizing a transabdominal and endovaginal technique. The images were reviewed on a PACS workstation. COMPARISON: Pelvic ultrasound from 08/29/2016 LMP: 09/16/2016 FINDINGS: The uterus measures 10.2 x 5.1 x 6.5 cm. The endometrial echo complex measures 20 mm in thickness. There is trace endocervical fluid. There is a round hypoechoic and possibly cystic lesion in the en dometrium at the level of the fundal apex measuring 4-5 mm in diameter which is nonspecific, but may be an intrauterine gestational sac. No yolk sac or pole is identified within it. The right ovary measures 3.5 x 2.2 x 2.1 cm. The left ovary measures 2.2 x 1.6 x 1.5 cm. There is no rmal vascular flow in both ovaries. There is a 1.4 cm partially circumscribed cystic lesion with an eccentric low level internal echoes in the right ovary which is likely a hemorrhagic or corpus luteal cyst. Moderate peripheral vascula r flow is noted. No significant pelvic free fluid is identified. IMPRESSION: Marked thickening of the endometrium to 20 mm as well as trace endocervical fluid and a 4-5 mm possi ble intrauterine gestational sac without a yolk sac or pole, as above. Correlation with a bet a HCG level is recommended. If the test is positive, then findings may be due to an early intrauterine or early demise, given the endocervical fluid. Moreover, if the pregn frank test is positive, an ectopic is not excluded and short-term follow-up ultrasound and serial Beta HCG measurements are recommended for further evaluation. 1.4 cm complex cystic lesion in the right ovary may be a hemorrhagic or corpus luteal cyst. RPTAT: EE Physician Amy Date Time Electronically viewed and signed by Emiliano Zaragoza Physician on 09/27/2016 13:58 /
[2016-09-27] MEDS ORDERED: HYDR-902 PO (15:29)
[2016-09-27] MEDS ORDERED: ONDA4TAB14 PO (15:30)
[2016-09-27 15:38] VITALS: BP 109/68; PULSE 77; RESP 20; TEMP 98.1
[2016-09-27] MEDS ORDERED: HYDR-906 PO (15:38)
[2016-09-27] MEDS ORDERED: MULTI PO (15:40)
== END 2016-09-27 15:38 | disposition left against medical advice (07) ==
LOC: FTE 10:37
DX: O21.9 Vomiting of pregnancy, unspecified (principal); O02.1 Missed abortion; R10.84 Generalized abdominal pain
CPT/HCPCS: 76830; 76856; 80053; 83690; 84702; 85025; J0500; J1170; J1885; J2405; J7040; 36415; 96372; 96374; 96375; 96376

== ENCOUNTER 2016-10-15 17:03 | Emergency (ER) | payer OTHER ==
[~2016-10-15] VITALS: Ht 157.5 cm; Wt 89.0 kg
[~2016-10-15 17:03] MED LIST changes: +HYDR-902 PO; +MULTI PO; +ONDA4TAB14 PO; -TRAM50TA2 PO
[2016-10-15 17:08] VITALS: Ht 157.5 cm; Wt 89.0 kg
[2016-10-15 19:30] VITALS: BP 118/75; PULSE 65; RESP 18; TEMP 98.1
[2016-10-15] MEDS ORDERED: ONDANSETRON 4 MG INJ IV STA (19:32)
[2016-10-15] MEDS ORDERED: ACETAMINOPHEN 325 MG TAB PO STA (19:32)
[2016-10-15] MEDS ORDERED: SODIUM CHLORIDE 0.9% 1L BAG IV* STA (19:32)
[2016-10-15] MEDS ORDERED: HYDROmorphONE 1 MG/ML SYG IV STA ×2 (19:32→21:01)
[2016-10-15] MEDS ORDERED: TRAM-40 PO (20:03)
[2016-10-15 20:06] LABS: ADD SCAN DIFF NO
[2016-10-15 20:13] LABS: BASOPHILS % 0.5 % (0.0-2.0); EOSINOPHILS % 0.6 % (0.0-7.0); HEMATOCRIT 41.5 % (37.0-47.0); HEMOGLOBIN 13.9 g/dl (12.0-16.0); LYMPHOCYTES # 1.6 10^3/ul (0.8-2.9); LYMPHOCYTES % 24.6 % (15.0-51.0); MEAN CORPUSCULAR HGB CONC 33.5 g/dl (32.0-37.0); MEAN CORPUSCULAR VOLUME 89.4 fl (82.0-101.0); MEAN PLATELET VOLUME 10.4 fl (7.4-10.4); MONOCYTE # 0.4 10^3/ul (0.3-0.9); NEUTROPHIL # 4.5 10^3/ul (1.6-7.5); NEUTROPHILS % 67.8 % (39.0-77.0); PLATELET COUNT 263 10^3/UL (140-415); RED BLOOD COUNT 4.64 10^6/ul (4.20-5.40); RED CELL DISTRIBUTION WIDTH 13.5 % (11.5-14.5); WHITE BLOOD COUNT 6.6 10^3/ul (4.8-10.8)
[2016-10-15 20:23] LABS: ALBUMIN 4.6 g/dl (3.3-4.9); INR 1.06; PARTIAL THROMBOPLASTIN TIME 29.5 Sec (25.0-35.0); POTASSIUM 3.2 mmol/L (3.5-5.1); PROTIME 13.8 Sec (12.2-14.2); PT RATIO 1.1
[2016-10-15 20:25] LABS: CREATININE 0.5 mg/dl (0.44-1.00)
[2016-10-15 20:26] LABS: ALBUMIN/GLOBULIN RATIO 1.31; BILIRUBIN,INDIRECT 0.7 mg/dl (0-1.1); BILIRUBIN,TOTAL 0.7 mg/dl (0.2-1.3); TOTAL PROTEIN 8.1 g/dl (6.1-8.1)
[2016-10-15 20:27] LABS: CALCIUM 9.5 mg/dl (8.4-10.2)
--- NOTE | 2016-10-15 21:06 | RADRPT ---
PROCEDURE: US OB. CLINICAL INDICATION: Vaginal bleeding. 36-year-old female. TECHNIQUE: Transabdominal and transvaginal views of the pelvis are available for review. COMPARISON: Pelvic sonogram 09/27/2016. FINDINGS: The uterus measures 11 cm sagittal by 6.8 cm AP by 8.2 cm transverse. The years dates and gestation al sac measuring 2.4 x 1.9 x 2.1 cm. There is a single viable fetus. There is a circumferential gr brandan 0 placenta with a small subchorionic hemorrhage measuring up to 1.3 cm by 4 mm in width. A yolk sac is identified. Amniotic fluid volume is normal. [place]-rump length:1.4 cm equals 7 weeks 4 days. heart rate:168 beats per minute. Nuchal translucency:Not evaluated. Ultrasound estimated gestational age: The left ovary measures 1 point a by 1.5 x 1.2 cm with normal blood flow. It is unremarkable. The right ovary measures 3.7 x 1.9 by 3.1 cm. A 1.4 x 1.1 cm corpus luteal cyst is identified. There is trace fluid in the cul-de-sac. There is no evidence of an abnormal adnexal mass. IMPRESSION: 1. Single viable fetus is identified with a heart rate of 168 beats per minute. AUA is 7 weeks 3 d ays plus or minus humeral weeks 4 days. 2. LOREN (AUA) equals 05/31/2017. 3. Right corpus luteal cyst measuring 1.4 x 1.1 cm. 4. A small subchorionic hemorrhage measuring 1.3 cm by 4 mm is noted. 5. Trace fluid in the cul-de-sac. RPTAT:AAJJ Physician Guillermo Date Time Electronically viewed and signed by Physician Guillermo on 10/15/2016 21:06 KADIE/
--- NOTE | 2016-10-15 21:51 | ERA ---
ER Documentation Chief Complaint Date/Time DATE: 10/15/16 TIME: 21:50 Chief Complaint Complains of lower abd pain, 2 weeks had was scheduled for D/C HPI 36-year-old female who presents emergency room because of lower abdominal pain vaginal bleeding and spotting. The patient is a . She was seen here 2 weeks ago and had vaginal bleeding and possible retained products of conception after elective AB and taking oral medication. The patient refused a D&C at that time. She has not seen an VOICE ENGINEER during this timeframe. She reports a fever of 101 yesterday. No fever today. She notes persistent vaginal bleeding and spotting now with worsening lower cramping abdominal pain. ROS All systems reviewed and are negative except as per history of present illness. Medications Home Meds Active Scripts Ondansetron (Ondansetron Odt) 4 Mg Tab.rapdis, 4 MG PO Q6H Y for NAUSEA AND/OR VOMITING, #10 TAB Prov:CHIP REYES MD 10/15/16 Hydrocodone/Acetaminophen ([place] 10-325 Tablet) 1 Each Tablet, 1 TAB PO Q6H Y for PAIN, #7 TAB Prov:CHIP REYES MD 10/15/16 Reported Medications Tramadol Hcl* (Ultram*) 50 Mg Tablet, 50 MG PO BID Y for PAIN, TAB 10/15/16 Multivitamins* (Theragran*) 1 Tab Tab, 1 TAB PO DAILY, TAB 09/27/16 Discontinued Scripts Hydrocodone/Acetaminophen ([place] 5-325 Tablet) 1 Each Tablet, 1 TAB PO Q6H Y for PAIN, #7 TAB Prov:CHIP REYES MD 09/27/16 Ondansetron (Ondansetron Odt) 4 Mg Tab.rapdis, 4 MG PO Q6H Y for NAUSEA AND/OR VOMITING, #30 TAB Prov:CHIP REYES MD 09/27/16 Hydrocodone/Acetaminophen ([place] 10-325 Tablet) 1 Each Tablet, 1 TAB PO Q6H Y for PAIN, #5 TAB Prov:CHIP REYES MD 09/27/16 Ibuprofen* (Motrin*) 600 Mg Tab, 600 MG PO Q6, #30 TAB Prov:GLENYS ANDERSON PA-C 08/21/16 Allergies Allergies: Coded Allergies: No Known Allergy (Unverified , 10/15/16) PMhx/Soc History of Surgery: Yes (gallbladder, d&c) Anesthesia Reaction: No Hx Neurological Disorder: No Hx Respiratory Disorders: No Hx Cardiac Disorders: No Hx Psychiatric Problems: No Hx Miscellaneous Medical Probl: No Hx Alcohol Use: No Hx Substance Use: No Hx Tobacco Use: No Smoking Status: Never smoker FmHx Family History: No diabetes Physical Exam Vitals Vital Signs Date Time Temp Pulse Resp B/P Pulse Ox O2 Delivery O2 Flow Rate FiO2 10/15/16 19:30 Nasal Cannula 2 10/15/16 19:30 98.1 65 18 118/75 100 Room Air 10/15/16 17:08 98.9 79 20 134/79 100 Physical Exam General: Well developed, well nourished, no acute distress Head: Normocephalic, atraumatic. Eyes: Pupils equally reactive, EOM intact ENT: Moist mucous membranes Neck: Supple, no lymphadenopathy Respiratory: Lungs clear bilaterally, no distress Cardiovascular: RRR, no murmurs, rubs, or gallops Abdominal: Soft, mild suprapubic tenderness : Deferred MSK: No edema, no unilateral swelling, 5/5 strength Neurologic: Alert and oriented, moving all extremities, normal speech, no focal weakness, no cerebellar signs Skin: No rash Psych: Normal mood Result Diagram: 10/15/16 1950 10/15/161949 Results 24 hrs Laboratory Tests Test 10/15/16 19:50 White Blood Count 6.610^3/ul Red Blood Count 4.6410^6/ul Hemoglobin 13.9g/dl Hematocrit 41.5% Mean Corpuscular Volume 89.4fl Mean Corpuscular Hemoglobin 30.0pg Mean Corpuscular Hemoglobin Concent 33.5g/dl Red Cell Distribution Width 13.5% Platelet Count 28902^3/UL Mean Platelet Volume 10.4fl Neutrophils % 67.8% Lymphocytes % 24.6% Monocytes % 6.0% Eosinophils % 0.6% Basophils % 0.5% Nucleated Red Blood Cells % 0.0/100WBC Neutrophils # 4.510^3/ul Lymphocytes # 1.610^3/ul Monocytes # 0.410^3/ul Eosinophils # 0.010^3/ul Basophils # 0.010^3/ul Nucleated Red Blood Cells # 0.010^3/ul Prothrombin Time 13.8Sec Prothrombin Time Ratio 1.1 INR International Normalized Ratio 1.06 Activated Partial Thromboplast Time 29.5Sec Sodium Level 141mmol/L Potassium Level 3.2mmol/L Chloride Level 105mmol/L Carbon Dioxide Level 23mmol/L Anion Gap 16 Blood Urea Nitrogen 8mg/dl Creatinine 0.50mg/dl Glucose Level 106mg/dl Lactic Acid Level 0.9mmol/L Calcium Level 9.5mg/dl Total Bilirubin 0.7mg/dl Direct Bilirubin 0.00mg/dl Indirect Bilirubin 0.7mg/dl Aspartate Amino Transf (AST/SGOT) 25IU/L Alanine Aminotransferase (ALT/SGPT) 30IU/L Alkaline Phosphatase 67IU/L Total Protein 8.1g/dl Albumin 4.6g/dl Globulin 3.50g/dl Albumin/Globulin Ratio 1.31 Beta HCG, Quantitative 37435.0mIU/ml Current Medications Medications (Trade) Dose Ordered Sig/Tiffany Route PRN Reason Start Time Stop Time Status Last Admin Dose Admin Sodium Chloride (NS) 2,760 ml BOLUS OVER 2 HOURS STAT IV* 10/15/16 19:32 10/15/16 19:34 DC 10/15/16 19:52 Acetaminophen (Tylenol Tab) 650 mg ONCE STAT PO 10/15/16 19:32 10/15/16 19:34 DC 10/15/16 19:46 Hydromorphone HCl (Dilaudid) 0.5 mg ONCE STAT IV 10/15/16 19:32 10/15/16 19:34 DC 10/15/16 19:47 Ondansetron HCl (Zofran Inj) 4 mg ONCE STAT IV 10/15/16 19:32 10/15/16 19:34 DC 10/15/16 19:46 Hydromorphone HCl (Dilaudid) 1 mg ONCE STAT IV 10/15/16 21:01 10/15/16 21:02 DC 10/15/16 21:22 Procedures/MDM EKG, MONITORS, & DIAGNOSTIC IMAGING: Pelvic ultrasound IMPRESSION: 1. Single viable fetus is identified with a heart rate of 168 beats per minute. AUA is 7 weeks 3 days plus or minus humeral weeks 4 days. 2. LOREN (AUA) equals 05/31/2017. 3. Right corpus luteal cyst measuring 1.4 x 1.1 cm. 4. A small subchorionic hemorrhage measuring 1.3 cm by 4 mm is noted. 5. Trace fluid in the cul-de-sac. RPTAT:AAJJ LAB INTERPRETATION: A positive, quant of 45,000 MEDICAL DECISION MAKING: My initial concern was for possible missed and potential for endometritis. However, the patient's laboratory testing is reassuring with a normal white count. Her hCG quant is appropriate and her ultrasound shows evidence of an IUP. This is consistent with a failed elective . The patient's pain is controlled with multiple doses of pain medication. I was able to speak to the on-call labor is Dr. Rahman. At this time there is no indication for D&C. The patient can be referred to [facility] or [facility] clinic for D&C for elective . The patient was informed of any return precautions and she verbalizes understanding. Referral information provided. No risk factors for heterotopic No signs or symptoms of an alternative diagnosis or acute intra-abdominal process. I kept the patient and/or family informed of laboratory and diagnostic imaging results throughout the emergency room course. DISPOSITION PLAN: We discussed follow up with the patient's primary care doctor within 24 to 48 hours as needed. We also discussed return to the emergency room for worsening symptoms or worsening condition. Outpatient referral: [None required] Discharge Medications: [place] We discussed the use of narcotics including avoidance of operating heavy machinery and driving as well as its addictive properties. Departure Diagnosis: Primary Impression: Intrauterine Additional Impression: Abdominal pain affecting Condition: CHIP Bowman MD October 15, 2016 21:51
[2016-10-15] MEDS ORDERED: HYDR-902 PO (21:57)
[2016-10-15] MEDS ORDERED: ONDA4TAB14 PO (21:57)
[2016-10-15] MEDS ORDERED: HYDROCODONE/APAP (10/325) TAB PO ONE (22:30)
== END 2016-10-15 22:41 | disposition home or self-care (01) ==
LOC: E/R 17:03
DX: O26.891 Other specified pregnancy related conditions, first trimester (principal); R10.30 Lower abdominal pain, unspecified; Z3A.01 Less than 8 weeks gestation of pregnancy
CPT/HCPCS: 36415; 76801; 76817; 80053; 83605; 84702; 85025; 85610; 85730; 86850; 86900; 86901; 87040; 93005; 96374; 96375; 96376; J1170; J2405; J7030; Z7502; Z7610

== ENCOUNTER 2016-10-18 08:14 | Emergency (ER) | payer OTHER ==
[~2016-10-18] VITALS: Ht 160 cm; Wt 82.0 kg
[~2016-10-18 08:14] MED LIST changes: -HYDR-906 PO; -IBUP-1542 PO; +TRAM-40 PO
[2016-10-18 08:17] VITALS: Ht 160 cm; Wt 82.0 kg
[2016-10-18] MEDS ORDERED: morphine 4 MG/ML VIAL IV STA ×2 (09:33→11:49)
[2016-10-18] MEDS ORDERED: ONDANSETRON 4 MG INJ IV STA (09:33)
[2016-10-18 10:11] LABS: ADD SCAN DIFF NO
[2016-10-18 10:15] LABS: BASOPHILS % 0.3 % (0.0-2.0); EOSINOPHILS # 0.2 10^3/ul (0.0-0.5); EOSINOPHILS % 2.9 % (0.0-7.0); HEMATOCRIT 39.4 % (37.0-47.0); HEMOGLOBIN 12.8 g/dl (12.0-16.0); LYMPHOCYTES # 1.8 10^3/ul (0.8-2.9); LYMPHOCYTES % 31.3 % (15.0-51.0); MEAN CORPUSCULAR HEMOGLOBIN 29.4 pg (29.0-33.0); MEAN CORPUSCULAR HGB CONC 32.5 g/dl (32.0-37.0); MEAN CORPUSCULAR VOLUME 90.4 fl (82.0-101.0); MEAN PLATELET VOLUME 10.4 fl (7.4-10.4); MONOCYTE # 0.3 10^3/ul (0.3-0.9); MONOCYTES % 5.7 % (0.0-11.0); NEUTROPHIL # 3.5 10^3/ul (1.6-7.5); NEUTROPHILS % 59.6 % (39.0-77.0); PLATELET COUNT 225 10^3/UL (140-415); RED BLOOD COUNT 4.36 10^6/ul (4.20-5.40); RED CELL DISTRIBUTION WIDTH 13.6 % (11.5-14.5); WHITE BLOOD COUNT 5.8 10^3/ul (4.8-10.8)
[2016-10-18] MEDS ORDERED: KETOROLAC 30 MG INJ IV STA (10:17)
[2016-10-18 10:30] LABS: ADD UMIC YES; URINE BILIRUBIN (Dip) NEGATIVE (NEGATIVE); URINE BLOOD (Dip) TRACE (NEGATIVE); URINE COLOR LT. YELLOW (YELLOW); URINE GLUCOSE (Dip) NEGATIVE (NEGATIVE); URINE KETONES (Dip) NEGATIVE (NEGATIVE); URINE LEUKOCYTE ESTERASE (Dip) TRACE (NEGATIVE); URINE NITRITE (Dip) NEGATIVE (NEGATIVE); URINE TOTAL PROTEIN (Dip) NEGATIVE (NEGATIVE); URINE UROBILINOGEN (Dip) 0.2 E.U./dL (0.1-1.0)
--- NOTE | 2016-10-18 10:36 | CONS ---
Date/Time of Note Date/Time of Note DATE: 10/18/16 TIME: 10:20 Consultation Date/Type/Reason Admit Date/Time October 18, 2016 Emergency room consult Initial Consult Date This patient is a 36 years old 4 para 2 AB 1 who is about 7 weeks and 5 days today. She was coming to the emergency room for the past 2 weeks, with complaint of vaginal bleeding and lower abdominal pain She was about 6 weeks, that went to family planning clinic and vaginal prostaglandin was used to induced She started having some bleeding however, the did not happen.. Patient was seen here 6 days ago. At that time the ultrasound did not show any heart activity And she was given the option of having a D&C based on diagnosis of a failed induction of , and retained products of conception.. However patient did not accept a D&C at that time. She returned to the emergency room today, again complaining of lower abdominal pain and vaginal bleeding. On ultrasound study which was performed on October , 2 days ago a single viable fetus identified with a heartbeat of 168 and the length of the was reported at 7 weeks and 3 days. 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 Detailed Summary Eyes: No discharge, No no complaints, No other, No pain, No redness, No visual change ENT: No bleeding, No congestion, No discharge, No dysphagia, No no complaints, No other, No pain, No sore throat Respiratory: No cough, No no complaints, No other, No pain, No pleuritic pain, No shortness of breath, No sputum, No wheezing Cardiovascular: No chest pain, No edema, No lightheadedness, No no complaints, No orthopenea, No other, No palpitations, No paroxysmal nocturnal dyspnea Gastrointestinal: other (on pelvic exam as I mentioned there is no bleeding uterus about 7-8 weeks size no adnexal mass palpated), No blood, No constipation, No decreased appetite, No diarrhea, No flatus, No nausea, No no complaints, No pain, No passing stool, No vomiting Genitourinary: other (On pelvic exam as I mentioned before there is no evidence of vaginal bleeding and the uterus is about 7-8 weeks no adnexal mass was palpated), No bleeding, No discharge, No dysuria, No flank pain, No hematuria, No no complaints Musculoskeletal: No back pain, No bone/joint pain, No neck pain, No no complaints, No other, No restricted range of motion, No swelling Skin: No bruising, No erythema, No laceration, No no complaints, No other, No pruritis, No rash, No skin lesions Endocrine: No dry skin, No no complaints, No other, No polydypsia, No polyuria , No temp intolerance Lymphatic: No adenopathy, No lymphadema, No no complaints, No other, No tender nodes Psychological: No anxiety, No confusion, No depression, No nl mood/affect, No no complaints, No other, No suicidal Exam/Review of Systems Vital Signs Vitals Vital Signs Date Time Temp Pulse Resp B/P Pulse Ox O2 Delivery O2 Flow Rate FiO2 10/18/16 08:17 97.8 68 18 135/79 100 Results Result Diagram: 10/18/16 0953 Results 24 hrs Laboratory Tests Test 10/18/16 09:53 White Blood Count 5.8 Red Blood Count 4.36 Hemoglobin 12.8 Hematocrit 39.4 Mean Corpuscular Volume 90.4 Mean Corpuscular Hemoglobin 29.4 Mean Corpuscular Hemoglobin Concent 32.5 Red Cell Distribution Width 13.6 Platelet Count 225 Mean Platelet Volume 10.4 Neutrophils % 59.6 Lymphocytes % 31.3 Monocytes % 5.7 Eosinophils % 2.9 Basophils % 0.3 Nucleated Red Blood Cells % 0.0 Neutrophils # 3.5 Lymphocytes # 1.8 Monocytes # 0.3 Eosinophils # 0.2 Basophils # 0.0 Nucleated Red Blood Cells # 0.0 STEVEN SILVER MD October 18, 2016 10:31 STEVEN SILVER MD October 18, 2016 10:31
[2016-10-18 10:39] LABS: BACTERIA,URINE FEW; URINE RBCS 0-2 /HPF (0)
--- NOTE | 2016-10-18 12:04 | RADRPT ---
PROCEDURE: OB Ultrasound. CLINICAL INDICATION: Positive test. Abnormal vaginal bleeding. TECHNIQUE: Ultrasound of the pelvis was performed with transabdominal sonography in the axial and sagittal planes. COMPARISON: No prior study is available for comparison. FINDINGS: There is a single intrauterine gestational sac. pole and yolk sac are present. There is heart motion. heart rate is 174 beats per minute. [place]-rump length is 1.80 cm. Mean sac diameter is 2.38 cm. There is a subchorionic hemorrhage measuring approximately 2 cm in max imal dimension. Menstrual age by ultrasound dates is 8 weeks 2 days. This indicates an expected date of delivery of 05/28/2017. The right ovary appears normal measuring 3.1 x 2.2 x 2.2 cm. The left ovary appears normal measuring 2.1 x 1.2 x 1.9 cm. Color Doppler and pulsed Doppler sonography demonstrate normal flow to the ovaries. There is no other pelvic mass or free fluid. IMPRESSION: 1. Single live intrauterine gestation of 8 weeks 2 days menstrual age by ultrasound dates. 2. Expected date of delivery is 05/28/2017. 3. Subchorionic hemorrhage. RPTAT: QQ .Alejandro Marie MD, Date Time Electronically viewed and signed by .Alejandro Marie MD, on 10/18/2016 12:04 .R/
[2016-10-18] MEDS ORDERED: HYDR-906 PO (12:55)
[2016-10-18 13:08] VITALS: BP 118/66; PULSE 60; RESP 17
--- NOTE | 2016-10-18 14:32 | ERD ---
ER Documentation Chief Complaint Date/Time DATE: 10/18/16 TIME: 14:27 Chief Complaint abdominal pain, bleeding since saturday states needs D&C HPI 36-year-old female patient who is a A1 with no significant past medical history presents to the ED complaining of needing a dilation and curettage started at the beginning of her . States that she took an pill, unknown name, 3 weeks ago because she wanted an from [facility] but it was unsuccessful. Patient was seen here 2 days ago and was seen here for slight vaginal bleeding and abdominal pain. States that the vaginal bleeding got worse and she is now passing blood clots. Reports that she does not have an [employer]. States that her appointment for a dilation and curettage is not until October 24, 2016. Denies any fever, chills, nausea, vomiting , diarrhea, constipation. Reports that she is unsure of the date of her last menses. ROS All systems reviewed and are negative except as per history of present illness. Medications Home Meds Active Scripts Hydrocodone/Acetaminophen (Mccammon 5-325 Tablet) 1 Each Tablet, 1 TAB PO Q6H Y for PAIN, #15 TAB Prov:WELLINGTON ALLEN 10/21/16 Hydrocodone/Acetaminophen (Mccammon 5-325 Tablet) 1 Each Tablet, 1 TAB PO Q8H Y for PAIN, #14 TAB Prov:GLENYS ANDERSON PA-C 10/18/16 Ondansetron (Ondansetron Odt) 4 Mg Tab.rapdis, 4 MG PO Q6H Y for NAUSEA AND/OR VOMITING, #10 TAB Prov:CHIP REYES MD 10/15/16 Hydrocodone/Acetaminophen (Mccammon 10-325 Tablet) 1 Each Tablet, 1 TAB PO Q6H Y for PAIN, #7 TAB Prov:CHIP REYES MD 10/15/16 Reported Medications Tramadol Hcl* (Ultram*) 50 Mg Tablet, 50 MG PO BID Y for PAIN, TAB 10/15/16 Multivitamins* (Theragran*) 1 Tab Tab, 1 TAB PO DAILY, TAB 09/27/16 Allergies Allergies: Coded Allergies: No Known Allergy (Unverified , 10/18/16) PMhx/Soc History of Surgery: Yes (gallbladder, d&c) Anesthesia Reaction: No Hx Neurological Disorder: No Hx Respiratory Disorders: No Hx Cardiac Disorders: No Hx Psychiatric Problems: No Hx Miscellaneous Medical Probl: No Hx Alcohol Use: No Hx Substance Use: No Hx Tobacco Use: No Physical Exam Vitals Vital Signs Date Time Temp Pulse Resp B/P Pulse Ox O2 Delivery O2 Flow Rate FiO2 10/18/16 13:08 60 17 118/66 100 Room Air 10/18/16 08:17 97.8 68 18 135/79 100 Physical Exam Const: [id number], well-nourished. In no acute distress. Head: Atraumatic, normocephalic Eyes: Normal Conjunctiva without injection. No purulent discharge. ENT: Normal external ear, nose. Moist oropharynx without tonsillar exudates. Non -erythematous pharynx. Uvula midline. No drooling. No trismus. Neck: No cervical midline tenderness. Full range of motion. No meningismus. No cervical lymphadenopathy. No JVD. Resp: Clear to auscultation bilaterally. No wheezing, rhonchi, rales, or crackles. No accessory muscle use. No retractions. Cardio: Regular rate and rhythm. No murmurs, rubs or gallops. Abd: Soft, slight lower abdominal tenderness, non distended. Normal bowel sounds. No palpable masses. No rebound tenderness. No guarding. Negative McBurney's point. Negative psoas sign. Negative obturator sign. Skin: No petechiae or rashes Back: No midline tenderness. No CVA tenderness. Ext: No cyanosis, or edema. Neur: Awake and alert. Normal gait. Normal coordination. Psych: Normal Mood and Affect Results 24 hrs Laboratory Tests Test 10/18/16 09:53 White Blood Count 5.810^3/ul Red Blood Count 4.3610^6/ul Hemoglobin 12.8g/dl Hematocrit 39.4% Mean Corpuscular Volume 90.4fl Mean Corpuscular Hemoglobin 29.4pg Mean Corpuscular Hemoglobin Concent 32.5g/dl Red Cell Distribution Width 13.6% Platelet Count 71995^3/UL Mean Platelet Volume 10.4fl Neutrophils % 59.6% Lymphocytes % 31.3% Monocytes % 5.7% Eosinophils % 2.9% Basophils % 0.3% Nucleated Red Blood Cells % 0.0/100WBC Neutrophils # 3.510^3/ul Lymphocytes # 1.810^3/ul Monocytes # 0.310^3/ul Eosinophils # 0.210^3/ul Basophils # 0.010^3/ul Nucleated Red Blood Cells # 0.010^3/ul Urine Color LT. YELLOW Urine Clarity CLEAR Urine pH 6.5 Urine Specific [place] 1.010 Urine Ketones NEGATIVE Urine Nitrite NEGATIVE Urine Bilirubin NEGATIVE Urine Urobilinogen 0.2 E.U./dL Urine Leukocyte Esterase TRACE Urine Microscopic RBC 0-2/HPF Urine Microscopic WBC 2-5/HPF Urine Epithelial Cells MODERATE Urine Bacteria FEW Urine Hemoglobin TRACE Urine Glucose NEGATIVE% Urine Total Protein NEGATIVE Beta HCG, Quantitative 66268.0mIU/ml Current Medications Medications (Trade) Dose Ordered Sig/Tiffany Route PRN Reason Start Time Stop Time Status Last Admin Dose Admin Ondansetron HCl (Zofran Inj) 4 mg ONCE STAT IV 10/18/16 09:33 10/18/16 09:38 DC 10/18/16 09:45 Morphine Sulfate (morphine) 4 mg ONCE STAT IV 10/18/16 09:33 10/18/16 09:38 DC 10/18/16 09:45 Ketorolac Tromethamine (Toradol) 30 mg ONCE STAT IV 10/18/16 10:17 10/18/16 10:19 DC 10/18/16 10:22 Morphine Sulfate (morphine) 4 mg ONCE STAT IV 10/18/16 11:49 10/18/16 11:50 DC 10/18/16 11:53 Procedures/MDM 36-year-old female patient with no significant past medical history presents the ED complaining of abdominal pain and vaginal bleeding that got worsened since 2 days ago from her visit here at [facility]. Patient is afebrile nontoxic appearing. An ultrasound, beta-hCG, CBC, type and RH, UA was ordered to evaluate patient. CBC: No evidence of severe infection or anemia Urine: No elevation in nitrites, leukocyte esterase, hematuria. No evidence of UTI Rh: A positive. No indication for Rhogam at this time. [place] [address] PROCEDURE: OB Ultrasound. CLINICAL INDICATION: Positive test. Abnormal vaginal bleeding. TECHNIQUE: Ultrasound of the pelvis was performed with transabdominal sonography in the axial and sagittal planes. COMPARISON: No prior study is available for comparison. FINDINGS: There is a single intrauterine gestational sac. pole and yolk sac are present. There is heart motion. heart rate is 174 beats per minute. [place]-rump length is 1.80 cm. Mean sac diameter is 2.38 cm. There is a subchorionic hemorrhage measuring approximately 2 cm in maximal dimension. Menstrual age by ultrasound dates is 8 weeks 2 days. This indicates an expected date of delivery of 05/28/2017. The right ovary appears normal measuring 3.1 x 2.2 x 2.2 cm. The left ovary appears normal measuring 2.1 x 1.2 x 1.9 cm. Color Doppler and pulsed Doppler sonography demonstrate normal flow to the ovaries. There is no other pelvic mass or free fluid. IMPRESSION: 1. Single live intrauterine gestation of 8 weeks 2 days menstrual age by ultrasound dates. 2. Expected date of delivery is 05/28/2017. 3. Subchorionic hemorrhage. She stated that she does not want to keep her and wants an elective dilation and curettage. Dr. Larson, laborist on site services specialist told patient that she needs to follow-up with her [employer] or [facility] for [facility] procedure as she does have a single live intrauterine gestation of 8 weeks and 2 days. Patient requested for pain medications at this time since Tylenol is not working for her pain. I instructed her that morphine and ketorolac are C medications for her but she still wanted these medications for her pain. She was explained the risks of the medications. Patient agreed to receiving morphine and ketorolac. She was given 8 mg IV morphine, ketorolac 30 mg IV with improvement of her pain. Patient's bleeding symptoms have stabilized while in the department. Low suspicion for symptomatic anemia, ectopic , sepsis, PID, appendicitis, ovarian torsion, tubo-ovarian abscess, surgical abdomen, or other emergent conditions. Patient was educated that there is a risk for threatened with vaginal bleeding. Discharge medications: Mccammon - Patient understood this is a category C medication Patient to follow up with [employer] or [facility] in 2 days for further evaluation and treatment for a D and C. Patient is to return sooner to the ED for any worsening symptoms. Patient's questions were answered. Patient understood and agreed with discharge plan. Departure Diagnosis: Primary Impression: Vaginal bleeding before 22 weeks gestation Additional Impression: Pelvic pain affecting Patient Instructions: Dilation and Curettage, Vaginal Bleed in Referrals: COMM[facility]ITY [facility] YOU HAVE RECEIVED A MEDICAL SCREENING EXAM AND THE RESULTS INDICATE THAT YOU DO NOT HAVE A CONDITION THAT REQUIRES URGENT TREATMENT IN THE EMERGENCY DEPARTMENT. FURTHER EVALUATION AND TREATMENT OF YOUR CONDITION CAN WAIT UNTIL YOU ARE SEEN IN YOUR DOCTORS OFFICE WITHIN THE NEXT 1-2 DAYS. IT IS YOUR RESPONSIBILITY TO MAKE AN APPOINTMENT FOR FOLOW-UP CARE. IF YOU HAVE A PRIMARY DOCTOR --you should call your primary doctor and schedule an appointment IF YOU DO NOT HAVE A PRIMARY DOCTOR YOU CAN CALL OUR PHYSICIAN REFERRAL HOTLINE AT IF YOU CAN NOT AFFORD TO SEE A PHYSICIAN YOU CAN CHOSE FROM THE FOLLOWING [facility] [address] [facility] [address] [facility] [facility] [address] [facility] [facility] [address] [facility] [facility] [address] [facility]. [facility] [address] [facility]. [facility] YOU HAVE RECEIVED A MEDICAL SCREENING EXAM AND THE RESULTS INDICATE THAT YOU DO NOT HAVE A CONDITION THAT REQUIRES URGENT TREATMENT IN THE EMERGENCY DEPARTMENT. FURTHER EVALUATION AND TREATMENT OF YOUR CONDITION CAN WAIT UNTIL YOU ARE SEEN IN YOUR DOCTORS OFFICE WITHIN THE NEXT 1-2 DAYS. IT IS YOUR RESPONSIBILITY TO MAKE AN APPOINTMENT FOR FOLOW-UP CARE. IF YOU HAVE A PRIMARY DOCTOR --you should call your primary doctor and schedule and appointment IF YOU DO NOT HAVE A PRIMARY DOCTOR YOU CAN CALL OUR PHYSICIAN REFERRAL HOTLINE AT . IF YOU CAN NOT AFFORD TO SEE A PHYSICIAN YOU CAN CHOSE FROM THE FOLLOWING [facility] INSTITUTIONS: [facility] [address] [place] [address] [facility] [address] [place] [address] FORMER[facility] + [facility] [address] [place] [address] [employer] [address] [facility] [address] [place] [address] OFFICE FAX MANUEL AGUILA [address] [place] [address] [address] [place] [place] [address] [place] [address] DR LARSON, [facility] [address] [facility], [address], [place] [address] SHANTAL [place]AV[place] [address] [facility], [place] [address] [facility] [address] [place] [address] [facility], [facility] [address] - [place] [address] [place] [address] DR JOLLEY, [place] [address] [facility]. [address], [place] [address] [address] [place] [address] [place], [place] [id number] [facility] Hours: 8:00 am - 5:00 pm Additional Instructions: FOLLOW UP WITH YOUR [employer] tomorrow for further evaluation and treatment. You have a viable therefore the dilation and curretage should be a procedure done with your [employer] [facility] Return to this facility if you are not improving as expected. You have been given a medicine which may cause drowsiness.DO NOT DRIVE OR OPERATE DANGEROUS MACHINERY while taking this medicine! GLENYS ANDERSON PA-C October 18, 2016 14:32 Additional Instructions: FOLLOW UP WITH YOUR [employer] tomorrow for further evaluation and treatment. You have a viable therefore the dilation and curretage should be a procedure done with your [employer] [facility] Return to this facility if you are not improving as expected. You have been given a medicine which may cause drowsiness.DO NOT DRIVE OR OPERATE DANGEROUS MACHINERY while taking this medicine! GLENYS ANDERSON PA-C October 18, 2016 14:32
== END 2016-10-18 13:08 | disposition home or self-care (01) ==
LOC: FTE 08:14
DX: O20.9 Hemorrhage in early pregnancy, unspecified (principal); R10.2 Pelvic and perineal pain; Z3A.08 8 weeks gestation of pregnancy
CPT/HCPCS: 76801; 81001; 84702; 85025; J1885; J2270; J2405; 36415; 81003; 96374; 96375; 96376

== ENCOUNTER 2016-10-21 13:33 | Emergency (ER) | payer OTHER ==
[~2016-10-21] VITALS: Ht 157.5 cm; Wt 81.0 kg
[~2016-10-21 13:33] MED LIST changes: +HYDR-906 PO
[2016-10-21 13:48] VITALS: Ht 157.5 cm; Wt 81.0 kg
[2016-10-21] MEDS ORDERED: ONDANSETRON 4 MG INJ IV STA (14:02)
[2016-10-21] MEDS ORDERED: SOD CHLORIDE 0.9% 1,000 ML IV STA (14:02)
[2016-10-21] MEDS ORDERED: morphine 4 MG/ML VIAL IV STA (14:02)
[2016-10-21 14:32] LABS: ADD SCAN DIFF NO
[2016-10-21 14:35] LABS: BASOPHILS % 0.2 % (0.0-2.0); EOSINOPHILS # 0.1 10^3/ul (0.0-0.5); EOSINOPHILS % 1.2 % (0.0-7.0); HEMATOCRIT 40.5 % (37.0-47.0); HEMOGLOBIN 13.6 g/dl (12.0-16.0); LYMPHOCYTES # 1.9 10^3/ul (0.8-2.9); LYMPHOCYTES % 22.4 % (15.0-51.0); MEAN CORPUSCULAR HEMOGLOBIN 30.4 pg (29.0-33.0); MEAN CORPUSCULAR HGB CONC 33.6 g/dl (32.0-37.0); MEAN CORPUSCULAR VOLUME 90.6 fl (82.0-101.0); MEAN PLATELET VOLUME 10.5 fl (7.4-10.4); MONOCYTE # 0.7 10^3/ul (0.3-0.9); MONOCYTES % 7.6 % (0.0-11.0); NEUTROPHIL # 5.8 10^3/ul (1.6-7.5); NEUTROPHILS % 68.4 % (39.0-77.0); PLATELET COUNT 268 10^3/UL (140-415); RED BLOOD COUNT 4.47 10^6/ul (4.20-5.40); RED CELL DISTRIBUTION WIDTH 13.6 % (11.5-14.5); WHITE BLOOD COUNT 8.5 10^3/ul (4.8-10.8)
[2016-10-21 14:44] LABS: ADD UMIC YES; URINE BILIRUBIN (Dip) NEGATIVE (NEGATIVE); URINE BLOOD (Dip) NEGATIVE (NEGATIVE); URINE COLOR LT. YELLOW (YELLOW); URINE GLUCOSE (Dip) NEGATIVE (NEGATIVE); URINE KETONES (Dip) TRACE (NEGATIVE); URINE LEUKOCYTE ESTERASE (Dip) TRACE (NEGATIVE); URINE NITRITE (Dip) NEGATIVE (NEGATIVE); URINE TOTAL PROTEIN (Dip) NEGATIVE (NEGATIVE); URINE UROBILINOGEN (Dip) 0.2 E.U./dL (0.1-1.0)
[2016-10-21 14:50] LABS: ALBUMIN 4.2 g/dl (3.3-4.9)
[2016-10-21 14:51] LABS: POTASSIUM 3.4 mmol/L (3.5-5.1)
[2016-10-21 14:53] LABS: ALBUMIN/GLOBULIN RATIO 1.27; BILIRUBIN,INDIRECT 0.3 mg/dl (0-1.1); BILIRUBIN,TOTAL 0.3 mg/dl (0.2-1.3); CREATININE 0.53 mg/dl (0.44-1.00); TOTAL PROTEIN 7.5 g/dl (6.1-8.1)
[2016-10-21 14:54] LABS: BACTERIA,URINE MODERATE; SQUAMOUS EPITHELIAL CELL,UR MANY; URINE RBCS NONE SEEN /HPF (0)
--- NOTE | 2016-10-21 14:54 | RADRPT ---
PROCEDURE: OB Ultrasound. CLINICAL INDICATION: Positive test. Vaginal bleeding. TECHNIQUE: Ultrasound of the pelvis was performed with transabdominal sonography in the axial and sagittal planes. COMPARISON: OB ultrasound dated 10/18/2016. FINDINGS: There is a single intrauterine gestational sac. pole and yolk sac are present. There is heart motion. heart rate is 146 beats per minute. [place]-rump length is 1.80 cm. Mean sac diameter is 2.69 cm. Menstrual age by ultrasound dates is 8 weeks 0 days. This indicates an expected date of delivery of 06/02/2017. The right ovary measures 2.3 x 2.4 x 2.8 cm. The left ovary is not visualized. Color Doppler and pulsed Doppler sonography demonstrate normal flow to the right ovary. There is no right ovarian enlargement or mass. There is no other pelvic mass or free fluid. IMPRESSION: 1. Single live intrauterine gestation of 8 weeks 0 days menstrual age by ultrasound dates. 2. Expected date of delivery is 06/02/2017. 3. Left ovary is not visualized. RPTAT: QQ .Alejandro Marie MD, Date Time Electronically viewed and signed by .Alejandro Marie MD, on 10/21/2016 14:54 .R/
[2016-10-21 14:55] LABS: MUCUS,URINE MODERATE
[2016-10-21] MEDS ORDERED: HYDROmorphONE 1 MG/ML SYG IV STA (15:30)
[2016-10-21] MEDS ORDERED: HYDR-906 PO (16:00)
--- NOTE | 2016-10-21 16:16 | ERD ---
ER Documentation Chief Complaint Date/Time DATE: 10/21/16 TIME: 16:11 Chief Complaint 1.5 pads per hour with vomiting s/p D&C Saturday, abdominal cramping HPI This is a 36-year-old female presents to the ER complaining of pelvic pain and vaginal bleeding that started yesterday after she had a D[facility] at [facility]. Patient states that she is also had nausea and vomiting. Patient is using about 1-1/2 pads an hour. Patient pill about 4 weeks ago however it did not work, she was seen here twice however did not get a D&C for an elective here. Patient states that she had gotten a D&C in the past and that everything appeared to be normal when she got up on Saturday. Patient denies any fevers or chills. She denies any urinary frequency or dysuria. She denies any vaginal discharge. A1. ROS 12 point review of systems was done, all negative except per HPI. Medications Home Meds Active Scripts Hydrocodone/Acetaminophen (Decker 5-325 Tablet) 1 Each Tablet, 1 TAB PO Q6H Y for PAIN, #15 TAB Prov:WELLINGTON ALLEN 10/21/16 Hydrocodone/Acetaminophen (Decker 5-325 Tablet) 1 Each Tablet, 1 TAB PO Q8H Y for PAIN, #14 TAB Prov:GLENYS ANDERSON PA-C 10/18/16 Ondansetron (Ondansetron Odt) 4 Mg Tab.rapdis, 4 MG PO Q6H Y for NAUSEA AND/OR VOMITING, #10 TAB Prov:CHIP REYES MD 10/15/16 Hydrocodone/Acetaminophen (Decker 10-325 Tablet) 1 Each Tablet, 1 TAB PO Q6H Y for PAIN, #7 TAB Prov:CHIP REYES MD 10/15/16 Reported Medications Tramadol Hcl* (Ultram*) 50 Mg Tablet, 50 MG PO BID Y for PAIN, TAB 10/15/16 Multivitamins* (Theragran*) 1 Tab Tab, 1 TAB PO DAILY, TAB 09/27/16 Discontinued Scripts Hydrocodone/Acetaminophen (Decker 5-325 Tablet) 1 Each Tablet, 1 TAB PO Q6H Y for PAIN, #7 TAB Prov:CHIP REYES MD 09/27/16 Ondansetron (Ondansetron Odt) 4 Mg Tab.rapdis, 4 MG PO Q6H Y for NAUSEA AND/OR VOMITING, #30 TAB Prov:CHIP REYES MD 09/27/16 Hydrocodone/Acetaminophen (Decker 10-325 Tablet) 1 Each Tablet, 1 TAB PO Q6H Y for PAIN, #5 TAB Prov:CHIP REYES MD 09/27/16 Ibuprofen* (Motrin*) 600 Mg Tab, 600 MG PO Q6, #30 TAB Prov:GLENYS ANDERSON PA-C 08/21/16 Allergies Allergies: Coded Allergies: No Known Allergy (Unverified , 10/18/16) PMhx/Soc History of Surgery: Yes (gallbladder, d&c) Anesthesia Reaction: No Hx Neurological Disorder: No Hx Respiratory Disorders: No Hx Cardiac Disorders: No Hx Psychiatric Problems: No Hx Miscellaneous Medical Probl: No Hx Alcohol Use: No Hx Substance Use: No Hx Tobacco Use: No Physical Exam Vitals Vital Signs Date Time Temp Pulse Resp B/P Pulse Ox O2 Delivery O2 Flow Rate FiO2 10/21/16 13:48 98.9 73 22 127/79 100 Physical Exam GENERAL: The patient is well developed and appropriate for usual state of health , in no apparent distress. HEENT: Atraumatic. CHEST: Clear to auscultation bilaterally. There are no rales, wheezes or rhonchi. HEART: Regular rate and rhythm. No murmurs, clicks, rubs or gallops. ABDOMEN: Soft, nontender and nondistended. Good bowel sounds. No rebound or guarding. No gross peritonitis. No gross organomegaly or masses. No Suresh sign or McBurney point tenderness. BACK: No midline or flank tenderness. NEURO: Alert and oriented. SKIN: The skin is warm and dry. Result Diagram: 10/21/16 1423 10/21/16 1423 Results 24 hrs Laboratory Tests Test 10/21/16 14:23 White Blood Count 8.510^3/ul Red Blood Count 4.4710^6/ul Hemoglobin 13.6g/dl Hematocrit 40.5% Mean Corpuscular Volume 90.6fl Mean Corpuscular Hemoglobin 30.4pg Mean Corpuscular Hemoglobin Concent 33.6g/dl Red Cell Distribution Width 13.6% Platelet Count 63626^3/UL Mean Platelet Volume 10.5fl Neutrophils % 68.4% Lymphocytes % 22.4% Monocytes % 7.6% Eosinophils % 1.2% Basophils % 0.2% Nucleated Red Blood Cells % 0.0/100WBC Neutrophils # 5.810^3/ul Lymphocytes # 1.910^3/ul Monocytes # 0.710^3/ul Eosinophils # 0.110^3/ul Basophils # 0.010^3/ul Nucleated Red Blood Cells # 0.010^3/ul Urine Color LT. YELLOW Urine Clarity CLOUDY Urine pH 7.0 Urine Specific [place] 1.015 Urine Ketones TRACE Urine Nitrite NEGATIVE Urine Bilirubin NEGATIVE Urine Urobilinogen 0.2 E.U./dL Urine Leukocyte Esterase TRACE Urine Microscopic RBC NONE SEEN/HPF Urine Microscopic WBC 2-5/HPF Urine Squamous Epithelial Cells MANY Urine Bacteria MODERATE Urine Mucus MODERATE Urine Hemoglobin NEGATIVE Urine Glucose NEGATIVE% Urine Total Protein NEGATIVE Sodium Level 139mmol/L Potassium Level 3.4mmol/L Chloride Level 104mmol/L Carbon Dioxide Level 23mmol/L Anion Gap 15 Blood Urea Nitrogen 9mg/dl Creatinine 0.53mg/dl Glucose Level 70mg/dl Calcium Level 9.0mg/dl Total Bilirubin 0.3mg/dl Direct Bilirubin 0.00mg/dl Indirect Bilirubin 0.3mg/dl Aspartate Amino Transf (AST/SGOT) 17IU/L Alanine Aminotransferase (ALT/SGPT) 18IU/L Alkaline Phosphatase 59IU/L Total Protein 7.5g/dl Albumin 4.2g/dl Globulin 3.30g/dl Albumin/Globulin Ratio 1.27 Lipase 142U/L Beta HCG, Quantitative 83782.0mIU/ml Current Medications Medications (Trade) Dose Ordered Sig/Tiffany Route PRN Reason Start Time Stop Time Status Last Admin Dose Admin Sodium Chloride (NS) 1,000 ml @ 1,000 mls/hr Q1H STAT IV 10/21/16 14:02 10/21/16 15:01 DC 10/21/16 14:25 Morphine Sulfate (morphine) 6 mg ONCE STAT IV 10/21/16 14:02 10/21/16 14:04 DC 10/21/16 14:26 Ondansetron HCl (Zofran Inj) 4 mg ONCE STAT IV 5/7/17 14:02 10/21/16 14:04 DC 10/21/16 14:25 Hydromorphone HCl (Dilaudid) 0.5 mg ONCE STAT IV 10/21/16 15:30 10/21/16 15:36 DC 10/21/16 15:56 Procedures/MDM This is a 36 y/o female who presents to the ER with pelvic cramping and bleeding after D&C on Saturday. Workup was ordered, when ultrasound was read there is evidence of an 8 week intrauterine . Patient's beta quantitative hCG is increasing. At this time patient appears to still be . I contacted labor is control systems drafting officer, is likely that patient did not have a [facility] at [facility] as this is very odd. Patient needs to [facility] with [facility] for [facility] . At this time patient is hemodynamically stable and her pain was made better with morphine and Dilaudid. Thoroughly discussed the risks versus the benefits of using narcotic medications and as patient is still , patient wishes to continue with medication. Patient was given tramadol on last visit, she states that it does not help with her pain, I once again discussed with her that prescribing Decker is category C in and may endanger that . Patient wishes to continue. Patient is afebrile I doubt infectious etiology such as intra-abdominal abscess or infection from possible D&C. Patient needs to follow-up with her primary care doctor within 1-2 days and return to the ER if symptoms worsen. As possible. My medical decision making was shared with patient she understands and agrees with plan. Departure Diagnosis: Primary Impression: Vaginal bleeding before 22 weeks gestation Condition: Stable Patient Instructions: Vaginal Bleed in Referrals: EDEP ZHANG (PCP) Additional Instructions: Call your primary care doctor TOMORROW for an appointment during the next 1-2 days.See the doctor sooner or return here if your condition worsens before your appointment time. WELLINGTON ALLEN October 21, 2016 16:16
[2016-10-21 16:23] VITALS: BP 112/74; PULSE 64; RESP 18
== END 2016-10-21 16:25 | disposition home or self-care (01) ==
LOC: FTE 13:33
DX: O20.9 Hemorrhage in early pregnancy, unspecified (principal); R10.2 Pelvic and perineal pain; Z3A.08 8 weeks gestation of pregnancy
CPT/HCPCS: 36415; 76856; 80053; 81001; 83690; 84702; 85025; 96374; 96375; J1170; J2270; J2405; J7030; Z7502; 81003

== ENCOUNTER 2017-07-21 01:28 | Outpatient (CLI) | END 2017-07-21 02:25 | disposition home or self-care (01) ==

== ENCOUNTER 2017-09-01 11:27 | Emergency (ER) | END 2017-09-01 14:39 | disposition home or self-care (01) ==

== ENCOUNTER 2017-12-04 18:45 | Emergency (ER) | END 2017-12-05 00:57 | disposition home or self-care (01) ==

== ENCOUNTER 2017-12-07 16:36 | Inpatient (IN) | END 2017-12-09 09:45 | disposition home or self-care (01) | DRG 392 ==

== ENCOUNTER 2018-06-21 16:40 | Emergency (ER) | payer OTHER ==
[~2018-06-21] VITALS: Ht 160 cm; Wt 98.0 kg
[~2018-06-21 16:40] MED LIST changes: +ACET325T40 PO; +CEPH-443 PO; +HYDR-4011 PO; -HYDR-902 PO; -HYDR-906 PO; +IBUP800T48 PO; -MULTI PO; +NAPR-985 PO; +NITR-58 PO; -ONDA4TAB14 PO; +ONDA4TAB8 PO; +PREN-93 PO; +SENN-115 PO; -TRAM-40 PO; +UDFER GTB
[2018-06-21 16:42] VITALS: Ht 160 cm; Wt 98.0 kg
[2018-06-21] MEDS ORDERED: ONDANSETRON (ODT) 4 MG TAB ODT STA (17:19)
[2018-06-21] MEDS ORDERED: ACETAMINOPHEN 325 MG TAB PO ONE (17:30)
[2018-06-21] MEDS ORDERED: AMOX1TAB10 PO (18:32)
[2018-06-21] MEDS ORDERED: TYL500 PO (18:33)
[2018-06-21 18:48] VITALS: BP 127/85; PULSE 59; RESP 20
--- NOTE | 2018-06-22 03:20 | ERD ---
ER Documentation Chief Complaint Chief Complaint SINCE WED VOMITING RLQ PAIN. ROS All systems reviewed and are negative except as per history of present illness. Medications Home Meds Active Scripts Acetaminophen* (Tylenol*) 500 Mg Tab, 500 MG PO Q4H PRN for MILD PAIN LEVEL 1-3, #30 TAB Prov:ALISA ZHAO 06/21/18 Amoxicillin/Potassium Clav (Amox-Clav 875-125 mg Tablet) 875-125 mg Tab, 1 TAB PO BID for abdominal infection for 7 Days, #14 TAB Prov:ALISA ZHAO DO 06/21/18 Sennosides/Docusate Sodium (Senna S Tablet) 1 Each Tablet, 1 EACH PO BID PRN for CONSTIPATION for 15 Days, #30 TAB Prov:NENITA HARRELL MD 12/09/17 Acetaminophen (MAPAP) 325 Mg Tablet, 650 MG PO Q6H PRN for PAIN AND OR ELEVATED TEMP for 7 Days, TAB otc Prov:MICHELLE LIVINGSTON MD 12/08/17 Ibuprofen* (Motrin*) 800 Mg Tab, 800 MG PO Q6H PRN for PAIN AND OR ELEVATED TEMP, #30 TAB Prov:CARLOS HOPKINS NP 12/04/17 Nitrofurantoin Monohyd Macrocr* (Macrobid*) 100 Mg Capsr, 100 MG PO BID for 7 Days, CAP Prov:CARLOS HOPKINS NP 12/04/17 Hydrocodone/Acetaminophen (Anton 5-325 Tablet) 1 Each Tablet, 1 TAB PO Q6H PRN for PAIN, #15 TAB Prov:ALCIRA MCCORD-C 09/01/17 Cephalexin* (Keflex*) 500 Mg Capsule, 500 MG PO QID for 7 Days, CAP Prov:ALCIRA MCCORD-C 09/01/17 Ondansetron Hcl* (Zofran*) 4 Mg Tablet, 4 MG PO Q6H for NAUSEA AND/OR VOMITING, #30 TAB Prov:ALCIRA MCCORD-C 09/01/17 Naproxen* (Naprosyn*) 500 Mg Tablet, 500 MG PO BID PRN for PAIN AND/OR INFLAMMATION, #30 TAB Prov:ALCIRA MCCORD-C 09/01/17 Reported Medications Ferrous Sulfate (Ferrous Sulfate) 300 Mg/5 Ml Liquid, 300 MG GTB 07/21/17 Vit No.124/Iron/FA ( Vitamin Tablet) 1 Each Tablet, 1 EACH PO, TAB 07/21/17 Allergies Allergies: Coded Allergies: ketorolac (Unverified Allergy, Intermediate, Itchiness/Facial rash , 12/06/17) PMhx/Soc History of Surgery: Yes (CHOLEYCESTECTOMY) Anesthesia Reaction: No Hx Neurological Disorder: No Hx Respiratory Disorders: No Hx Cardiac Disorders: No Hx Psychiatric Problems: No Hx Miscellaneous Medical Probl: No Hx Alcohol Use: Yes Hx Substance Use: No Hx Tobacco Use: No Smoking Status: Never smoker Physical Exam Vitals Vital Signs Date Temp Pulse Resp B/P (MAP) Pulse Ox O2 O2 Flow FiO2 Time Delivery Rate 06/21/18 99.1 59 20 127/85 97 Room Air 18:48 (99) 06/21/18 98.2 69 17 135/92 99 16:42 (106) Physical Exam Const: No acute distress Head: Atraumatic Eyes: Normal Conjunctiva ENT: Normal External Ears, Nose and Mouth. Neck: Full range of motion. No meningismus. Resp: Clear to auscultation bilaterally Cardio: Regular rate and rhythm, no murmurs Abd: Soft, non tender, non distended. Normal bowel sounds Skin: No petechiae or rashes Back: No midline or flank tenderness Ext: No cyanosis, or edema Neur: Awake and alert Psych: Normal Mood and Affect Result Diagram: 06/21/18 1736 06/21/18 1736 Results 24 hrs Laboratory Tests Test 06/21/18 17:30 06/21/18 17:31 06/21/18 17:36 Urine Color YELLOW Urine Clarity CLOUDY Urine pH 7.0 Urine Specific [place] 1.024 Urine Ketones NEGATIVE mg/dL Urine Nitrite NEGATIVE mg/dL Urine Bilirubin NEGATIVE mg/dL Urine Urobilinogen 1+ mg/dL Urine Leukocyte Esterase TRACE Darcy/ul Urine Microscopic RBC 3 /HPF Urine Microscopic WBC 6 /HPF Urine Squamous Epithelial Cells MANY /HPF Urine Bacteria FEW /HPF Urine Mucus MANY /HPF Urine Hemoglobin NEGATIVE mg/dL Urine Glucose NEGATIVE mg/dL Urine Total Protein NEGATIVE mg/dl POC Beta HCG, Qualitative NEGATIVE White Blood Count 7.5 10^3/ul Red Blood Count 4.49 10^6/ul Hemoglobin 13.5 g/dl Hematocrit 40.3 % Mean Corpuscular Volume 89.8 fl Mean Corpuscular Hemoglobin 30.1 pg Mean Corpuscular 33.5 g/dl Hemoglobin Concent Red Cell Distribution Width 13.2 % Platelet Count 341 10^3/UL Mean Platelet Volume 9.8 fl Immature Granulocytes % 0.400 % Neutrophils % 62.0 % Lymphocytes % 27.3 % Monocytes % 6.0 % Eosinophils % 3.8 % Basophils % 0.5 % Nucleated Red Blood Cells % 0.0 /100WBC Immature Granulocytes # 0.030 10^3/ul Neutrophils # 4.7 10^3/ul Lymphocytes # 2.1 10^3/ul Monocytes # 0.5 10^3/ul Eosinophils # 0.3 10^3/ul Basophils # 0.0 10^3/ul Nucleated Red Blood Cells # 0.0 10^3/ul Sodium Level 138 mmol/L Potassium Level 4.3 mmol/L Chloride Level 107 mmol/L Carbon Dioxide Level 25 mmol/L Anion Gap 6 Blood Urea Nitrogen 9 mg/dl Creatinine 0.50 mg/dl Est Glomerular Filtrat > 60 mL/min Rate mL/min Glucose Level 92 mg/dl Calcium Level 8.9 mg/dl Total Bilirubin 0.1 mg/dl Direct Bilirubin 0.00 mg/dl Indirect Bilirubin 0.1 mg/dl Aspartate Amino Transf (AST/SGOT) 22 IU/L Alanine 21 IU/L Aminotransferase (ALT/SGPT) Alkaline Phosphatase 83 IU/L Total Protein 7.4 g/dl Albumin 4.0 g/dl Globulin 3.40 g/dl Albumin/Globulin Ratio 1.17 Lipase 119 U/L Current Medications Medications Dose Sig/Tiffany Start Time Status Last (Trade) Ordered Route PRN Stop Time Admin Dose Reason Admin Ondansetron 4 mg ONCE STAT 06/21/18 DC 06/21/18 HCl (Zofran ODT 17:19 06/21/18 17:31 Odt) 17:25 650 mg ONCE ONCE 06/21/18 DC 06/21/18 Acetaminophen PO 17:30 06/21/18 17:31 (Tylenol 17:31 Tab) Departure Diagnosis: Primary Impression: Abdominal pain Condition: Fair Patient Instructions: Abdominal Pain Referrals: [facility] YOU HAVE RECEIVED A MEDICAL SCREENING EXAM AND THE RESULTS INDICATE THAT YOU DO NOT HAVE A CONDITION THAT REQUIRES URGENT TREATMENT IN THE EMERGENCY DEPARTMENT. FURTHER EVALUATION AND TREATMENT OF YOUR CONDITION CAN WAIT UNTIL YOU ARE SEEN IN YOUR DOCTORS OFFICE WITHIN THE NEXT 1-2 DAYS. IT IS YOUR RESPONSIBILITY TO MAKE AN APPOINTMENT FOR FOLOW-UP CARE. IF YOU HAVE A PRIMARY DOCTOR --you should call your primary doctor and schedule an appointment IF YOU DO NOT HAVE A PRIMARY DOCTOR YOU CAN CALL OUR PHYSICIAN REFERRAL HOTLINE AT IF YOU CAN NOT AFFORD TO SEE A PHYSICIAN YOU CAN CHOSE FROM THE FOLLOWING [facility] [address] [facility] [address] [facility] [address] [facility] [address] [facility] [address] [facility]. [facility]. [address] Additional Instructions: Call your primary care doctor TOMORROW for an appointment during the next 1-2 days.See the doctor sooner or return here if your condition worsens before your appointment time. Follow up with general surgery. ALISA ZHAO DO Jun 22, 2018 03:20
== END 2018-06-21 18:45 | disposition home or self-care (01) ==
LOC: FTE 16:40
DX: R10.31 Right lower quadrant pain (principal); R11.10 Vomiting, unspecified
CPT/HCPCS: 36415; 80053; 81001; 81025; 83690; 85025; Z7502; Z7610